=== PATIENT | female | born 1980 | race Caucasian/White ===

== ENCOUNTER 2022-09-25 13:51 | Emergency (ER) | payer OTHER ==
[2022-09-25 14:11] VITALS: BP 167/99; PULSE 87; RESP 20; TEMP 98.7
[2022-09-25] MEDS ORDERED: APIXABAN 5 MG TAB PO STA (14:32)
--- NOTE | 2022-09-25 14:40 | ED ---
Extremity Problem HPI - General Chief complaint: Extremity Problem,Nontraumatic Stated complaint: Rt leg blood clot Time Seen by Provider: 09/25/22 14:21 Source: patient, RN notes reviewed, old records reviewed Mode of arrival: ambulatory Limitations: no limitations - History of Present Illness Initial comments: Nontoxic appearing female [facility] where she was seen for bilateral lower extremity swelling for the past 2 weeks. Denies any pain. They ordered an ultrasound and found positive DVT right lower extremity today. Denies any chest pain or shortness of breath. Denies any medical history. No history of cancer and no trauma. Does take control pills regularly. Is a nonsmoker. MD Complaint: extremity swelling (blle) -: week(s) (2) Location: left, right, lower extremity History of Same: No Severity scale (1-10): 0 Associated Symptoms: denies other symptoms - Related Data Previous Rx's Medication Instructions Recorded Apixaban [Eliquis Starter Pack 0 mg PO DIRECTED 30 Days #1 each 09/25/22 (for VTE)] Allergies Allergy/AdvReac Type Severity Reaction Status Date / Time cefuroxime [From Ceftin] Allergy Rash/Hives Verified 09/25/22 14:12 Review of Systems ROS Statement: Those systems with pertinent positive or pertinent negative responses have been documented in the HPI. ROS Other: All systems not noted in ROS Statement are negative. Past Medical History Past Medical History: Deep Vein Thrombosis (DVT) History of Any Multi-Drug Resistant Organisms: None Reported Past Surgical History: No Surgical Hx Reported Past Psychological History: No Psychological Hx Reported Smoking Status: Never smoker Past Alcohol Use History: Occasional Past Drug Use History: Marijuana General Exam Limitations: no limitations General appearance: alert, in no apparent distress Head exam: Present: atraumatic, normocephalic Eye exam: Present: normal appearance. Absent: scleral icterus, conjunctival injection, periorbital swelling ENT exam: Present: mucous membranes moist Neck exam: Absent: tenderness, meningismus Respiratory exam: Present: normal lung sounds bilaterally. Absent: respiratory distress, accessory muscle use Cardiovascular Exam: Present: regular rate GI/Abdominal exam: Present: soft Left Lower Leg exam: Present: normal inspection, full ROM, swelling. Absent: tenderness Ankle exam: Present: full ROM, swelling. Absent: tenderness Foot/Toe exam: Present: normal inspection, swelling. Absent: tenderness Neurovascular tendon exam: Present: no vascular compromise. Absent: abnormal cap refill, extremity cold to touch, pallor, foot drop Right Knee exam: Present: full ROM. Absent: tenderness Lower Leg exam: Present: full ROM, swelling. Absent: tenderness Ankle exam: Present: full ROM, swelling. Absent: tenderness Foot/Toe exam: Present: full ROM, swelling. Absent: tenderness Neurovascular tendon exam: Present: no vascular compromise. Absent: abnormal cap refill, extremity cold to touch, pallor, foot drop Neurological exam: Present: alert, oriented X3 Psychiatric exam: Present: normal affect, normal mood Skin exam: Present: warm, dry, normal color. Absent: cyanosis, diaphoretic, erythema, petechiae, pallor Course Vital Signs 09/25/22 09/25/22 14:04 14:05 Temperature 98.7 F 98.7 F Pulse Rate 87 87 Respiratory 20 20 Rate Blood Pressure 167/99 167/99 O2 Sat by Pulse 98 98 Oximetry Medical Decision Making - Medical Decision Making Was pt. sent in by a medical professional or institution (Dr. PA, SALES REPRESENTATIVE [employer], urgent care, hospital, or correction...) When possible be specific @ -[facility] Did you speak to anyone other than the patient for history (EMS, parent, family, police, friend...)? What history was obtained from this source @ -[No] Did you review nursing and triage notes (agree or disagree)? Why? @ -[I reviewed and agree with nursing and triage notes] Were old charts reviewed (outside hosp., previous admission, EMS record, old EKG, old radiological studies, urgent care reports/EKG's, correction records)? Report findings @ -Ultrasound performed today showing acute DVT right lower extremity Differential Diagnosis (chest pain, altered mental status, abdominal pain women, abdominal pain men, vaginal bleeding, weakness, fever, dyspnea, syncope, headache, dizziness, GI bleed, back pain, seizure, CVA, palpatations, mental health, musculoskeletal)? @ -DVT, cellulitis, lymphedema EKG interpreted by me (3pts min.). @ -n/a X-rays interpreted by me (1pt min.). @ -[None done] CT interpreted by me (1pt min.). @ -[None done] U/S interpreted by me (1pt. min.). @ -no What testing was considered but not performed or refused? (CT, X-rays, U/S, labs)? Why? @ -[None] What meds were considered but not given or refused? Why? @ -[None] Did you discuss the management of the patient with other professionals (professionals i.e. , PA, SALES REPRESENTATIVE [employer], lab, RT, psych nurse, social sciences chair, industrial hygiene engineer, teacher, court officer, case management coordinator)? Give summary @ -[No] Was smoking cessation discussed for >3mins.? @ -[No] Was critical care preformed (if so, how long)? @ -[No] Were there social determinants of health that impacted care today? How? (Homelessness, low income, unemployed, alcoholism, drug addiction, transportation, low edu. Level, literacy, decrease access to med. care, detention, rehab)? @ -[No] Was there de-escalation of care discussed even if they declined (Discuss DNR or withdrawal of care, Hospice)? DNR status @ -[No] What co-morbidities impacted this encounter? (DM, HTN, Smoking, COPD, CAD, Cancer, CVA, ARF, Chemo, Hep., AIDS, mental health diagnosis, sleep apnea, morbi d obesity)? @ -[None] Was patient admitted / discharged? Hospital course, mention meds given and route, prescriptions, significant lab abnormalities, going to OR and other pertinent info. @ -Discharged. [facility] after ultrasound of LE found positive DVT right leg. Ultrasound report that was performed today reviewed by me shows age- indeterminate DVT below the knee in the right lower extremity. No acute DVT in the left lower extremity. Patient is a nonsmoker. Does take control daily. Denies any trauma or history of cancer. She denies any chest pain, shortness of breath or cough. Lungs sounds are clear to auscultation. Vital signs are stable. Bilateral lower extremities are warm to touch, pedal pulses are present. Patient denies any other medical history. Case discussed with Dr. Gomez no labs required at this time. Patient does have a prescription to have labs drawn today which was given to outpatient lab. She was directed to go back to outpatient lab to have them drawn. Patient was given a dose of Eliquis in the ER and a prescription. She was directed to stop taking control pills and follow-up with her doctor on Wednesday. Return with any new or concerning symptoms. Patient family member agreeable to this plan of care. Case discussed with Dr. Gomez Undiagnosed new problem with uncertain prognosis? @ -Acute DVT right lower extremity Drug Therapy requiring intensive monitoring for toxicity (Heparin, Nitro, In sulin, Cardizem)? @ -[No] Were any procedures done? @ -[No] Diagnosis/symptom? @ -Acute DVT right lower extremity Acute, or Chronic, or Acute on Chronic? @ -Acute Uncomplicated (without systemic symptoms) or Complicated (systemic symptoms)? @ -Uncomplicated Side effects of treatment? @ -[No] Exacerbation, Progression, or Severe Exacerbation? @ -[No] Poses a threat to life or bodily function? How? (Chest pain, [place], CO, pneumonia, PE, COPD, DKA, ARF, appy, cholecystitis, CVA, Diverticulitis, Homicidal, Suicidal, threat to staff... and all critical care pts) @ -[No] Disposition Clinical Impression: Deep vein thrombosis (DVT) of lower extremity Disposition: HOME SELF-CARE Condition: Good Instructions (If sedation given, give patient instructions): Deep Vein Thrombosis (ED) Additional Instructions: Take Eliquis as prescribed. Stop taking your control pills. Avoid any contact sports, sharp objects or activity that could cause falls. Return to the emergency room with a concerning symptoms including difficulty breathing or chest pain. Prescriptions: Apixaban [Eliquis Starter Pack (for VTE)] 0 mg PO DIRECTED 30 Days #1 each Is patient prescribed a controlled substance at d/c from ED?: No Referrals: Marlen Romero DO [Primary Care Provider] - 1-2 days Time of Disposition: 14:39
[2022-09-25] MEDS ORDERED: Apixaban Starter Pk for VTE 5 MG TAB PO SCH (21:00)
== END 2022-09-25 14:51 | disposition home or self-care (01) ==
LOC: EC 13:51
DX: I82.403 Acute embolism and thrombosis of unspecified deep veins of lower extremity, bilateral (principal); F12.90 Cannabis use, unspecified, uncomplicated; Z88.1 Allergy status to other antibiotic agents
CPT/HCPCS: 99283

== ENCOUNTER → 2022-09-25 | Outpatient (CLI) | payer OTHER ==
--- NOTE | 2022-09-25 13:50 | US ---
EXAMINATION TYPE: US venous doppler duplex LE DATE OF EXAM: 09/25/2022 1:40 PM COMPARISON: NONE CLINICAL INDICATION: Female, 41 years old with history of M79.89 OTHER SPECIFIED SOFT TISSUE DISORDER S; Bilateral leg swelling x 2 weeks, no h/o dvt SIDE PERFORMED: Bilateral TECHNIQUE: The lower extremity deep venous system is examined utilizing real time linear array sonog kenneth with graded compression, doppler sonography and color-flow sonography. VESSELS IMAGED: Common Femoral Vein Deep Femoral Vein Greater Saphenous Vein * Femoral Vein Popliteal Vein Small Saphenous Vein * Proximal Calf Veins (* superficial vessels) Right Leg: Internal echoes that are not compressible on right proximal calf vein, DVT Left Leg: Negative for DVT called office and spoke with Edwina with tech findings Grayscale, color doppler, spectral doppler imaging performed of the deep veins of the bilateral lower extremities. There is normal flow, compressibility, vascular waveforms. IMPRESSION: Age-indeterminate DVT below the knee in the right lower extremity. No acute DVT in the l eft lower extremity.
[2022-09-25 20:20] LABS: Basophils # (A) 0.04 X 10*3/uL (0.00-0.10); Basophils % (A) 0.5 %; Eosinophils # (A) 0.02 X 10*3/uL (0.04-0.35); Eosinophils % (A) 0.2 %; HCT 35.8 % (37.2-46.3); HGB 11.7 g/dL (12.0-15.0); Immature Grans, Automated 0.3 %; Lymphocytes # (A) 1.57 X 10*3/uL (0.90-5.00); Lymphocytes % (A) 17.8 %; MCH 29.3 pg (27.0-32.0); MCHC 32.7 g/dL (32.0-37.0); MCV 89.5 fL (80.0-97.0); Mean Platelet Volume 11.2 fL (9.5-12.2); Monocytes # (A) 0.51 X 10*3/uL (0.20-1.00); Monocytes % (A) 5.8 %; NRBC Per 100 WBC 0 /100 WBCS (0.0-0.0); Neutrophils # (A) 6.67 X 10*3/uL (1.80-7.70); Neutrophils % (A) 75.4 %; Platelet Count 251 X 10*3/uL (140-440); RDW 14.7 % (11.5-14.5); WBC 8.84 X 10*3/uL (4.50-10.00)
[2022-09-25 20:37] LABS: ALT 14 U/L (8-44); AST 15 U/L (13-35); African American GFR (CKD) 125.6 (60.0-200.0); Albumin 3.1 g/dL (3.8-4.9); Albumin/Globulin Ratio 1.29 (1.60-3.17); Alkaline Phosphatase 62 U/L (41-126); BUN/Creat Ratio 12.29 Ratio (12.00-20.00); Blood Urea Nitrogen 8.6 mg/dL (9.0-27.0); Calcium 8.9 mg/dL (8.7-10.3); Carbon Dioxide 27.5 mmol/L (20.0-27.5); Chloride 106 mmol/L (96-109); Globulin 2.4 g/dL (1.6-3.3); Glucose 82 mg/dL (70-110); Non-African American GFR(CKD) 108.4 (60.0-200.0); Potassium 4.3 mmol/L (3.5-5.5); Sodium 140 mmol/L (135-145); Total Bilirubin <0.15 mg/dL (0.30-1.20); Total Protein 5.5 g/dL (6.2-8.2)
== END | disposition home or self-care (01) ==
LOC: RADUSWWP 13:06
PROVIDERS: ATTEND Family Medicine
DX: M79.89 Other specified soft tissue disorders (principal)
CPT/HCPCS: 80053; 83880; 85025; 93970

== ENCOUNTER → 2022-12-18 | Outpatient (CLI) | payer OTHER ==
--- NOTE | 2022-12-18 14:23 | US ---
EXAMINATION TYPE: US venous doppler duplex LE RT DATE OF EXAM: 12/18/2022 1:50 PM COMPARISON: US CLINICAL INDICATION: Female, 42 years old with history of DVT; F/U prior DVT right leg, pt currently on blood thinners SIDE PERFORMED: Right TECHNIQUE: The lower extremity deep venous system is examined utilizing real time linear array sonog kenneth with graded compression, doppler sonography and color-flow sonography. VESSELS IMAGED: Common Femoral Vein Deep Femoral Vein Greater Saphenous Vein * Femoral Vein Popliteal Vein Small Saphenous Vein * Proximal Calf Veins (* superficial vessels) Right Leg: Negative for DVT, previous DVT within proximal calf vein appears resolved IMPRESSION: Grayscale, color doppler, spectral doppler imaging performed of the deep veins of the lo wer extremities. There is normal flow, compressibility, vascular waveforms.
== END | disposition home or self-care (01) ==
LOC: RADUSWWP 13:26
PROVIDERS: ATTEND Internal Medicine Medical Oncology
DX: I82.401 Acute embolism and thrombosis of unspecified deep veins of right lower extremity (principal); Z79.01 Long term (current) use of anticoagulants

== ENCOUNTER → 2022-12-18 | Outpatient (CLI) | payer OTHER ==
[2022-12-18 19:55] LABS: ALT 12 U/L (8-44); AST 23 U/L (13-35); Albumin 3.3 d/dL (3.8-4.9); Albumin/Globulin Ratio 1.38 Ratio (1.60-3.17); Alkaline Phosphatase 63 U/L (41-126); Blood Urea Nitrogen 9.6 mg/dL (9.0-27.0); Calcium 8.8 mg/dL (8.7-10.3); Carbon Dioxide 26.4 mmol/L (21.6-31.8); Chloride 105 mmol/L (96-109); Globulin 2.4 d/dL (1.6-3.3); Glucose 87 mg/dL (70-110); Potassium 3.9 mmol/L (3.5-5.5); Sodium 140 mmol/L (135-145); Total Bilirubin 0.2 mg/dL (0.3-1.2); Total Protein 5.7 d/dL (6.2-8.2)
[2022-12-19 02:05] LABS: Basophils # (A) 0.05 X 10*3/uL (0.00-0.10); Eosinophils # (A) 0.15 X 10*3/uL (0.04-0.35); Eosinophils % (A) 3.1 %; HGB 12.2 d/dL (12.0-15.0); Immature Grans, Automated 0 %; Lymphocytes # (A) 1.66 X 10*3/uL (0.90-5.00); Lymphocytes % (A) 34.8 %; MCH 30.2 pg (27.0-32.0); MCV 91.6 FL (80.0-97.0); Mean Platelet Volume 10.7 FL (9.5-12.2); Monocytes % (A) 8.4 %; NRBC Per 100 WBC 0 X 10*3/uL (0.00-0.01); Neutrophils # (A) 2.51 X 10*3/uL (1.80-7.70); Neutrophils % (A) 52.7 %; Platelet Count 287 X 10*3/uL (140-440); RBC 4.04 X 10*6/uL (4.10-5.20); RDW 14.6 % (11.5-14.5); WBC 4.77 X 10*3/uL (4.50-10.00)
== END | disposition home or self-care (01) ==
LOC: LABWHC1 13:55
PROVIDERS: ATTEND Internal Medicine Medical Oncology
DX: I82.401 Acute embolism and thrombosis of unspecified deep veins of right lower extremity (principal)
CPT/HCPCS: 36415; 80053; 85025; 85379

== ENCOUNTER 2023-02-17 11:43 | Inpatient (IN) | payer OTHER ==
[2023-02-17 12:18] LABS: Basophils % (A) 0 %; Eosinophils % (A) 0 %; HCT 46.1 % (34.0-46.0); HGB 15.2 gm/dL (11.4-16.0); Lymphocytes # (A) 1.9 k/uL (1.0-4.8); Lymphocytes % (A) 15 %; MCH 29.9 pg (25.0-35.0); MCHC 32.9 g/dL (31.0-37.0); MCV 90.9 fL (80.0-100.0); Mean Platelet Volume 8.1; Monocytes # (A) 0.7 k/uL (0-1.0); Monocytes % (A) 6 %; Neutrophils # (A) 9.9 k/uL (1.3-7.7); Neutrophils % (A) 77 %; Platelet Count 271 k/uL (150-450); RBC 5.07 m/uL (3.80-5.40); WBC 12.8 k/uL (3.8-10.6)
--- NOTE | 2023-02-17 12:19 | XR ---
EXAMINATION TYPE: XR chest 2V DATE OF EXAM: 02/17/2023 COMPARISON: NONE HISTORY: Chest pain TECHNIQUE: Frontal and lateral views of the chest are obtained. FINDINGS: There is no focal air space opacity. No evidence for pneumothorax. No pleural effusion. The cardiac silhouette size is within normal limits. The osseous structures are grossly intact. IMPRESSION: 1. No acute cardiopulmonary process.
[2023-02-17 12:23] LABS: INR 0.9 (<1.2); Partial Thromboplastin Time 24.4 sec (22.0-30.0); Prothrombin Time 10.2 sec (10.0-12.5)
[2023-02-17 12:24] LABS: ALT 15 U/L (4-34); AST 37 U/L (14-36); African American GFR (CKD) >90 (>60 ml/min/1.73 sqM); Albumin 3.5 g/dL (3.5-5.0); Alkaline Phosphatase 104 U/L (38-126); Anion Gap 12 mmol/L; Blood Urea Nitrogen 15 mg/dL (7-17); Calcium 9.4 mg/dL (8.4-10.2); Carbon Dioxide 21 mmol/L (22-30); Chloride 104 mmol/L (98-107); Glucose 120 mg/dL (74-99); Non-African American GFR(CKD) >90 (>60 ml/min/1.73 sqM); Potassium 3.5 mmol/L (3.5-5.1); Sodium 137 mmol/L (137-145); Total Bilirubin 0.7 mg/dL (0.2-1.3)
[2023-02-17] MEDS ORDERED: ASPIRIN 81 MG PO STA (12:42)
[2023-02-17] MEDS ORDERED: SODIUM CHLORIDE 0.9% 1,000 ML IV STA ×2 (12:42→13:35)
--- NOTE | 2023-02-17 13:05 | ED ---
General Adult HPI - General Chief complaint: Chest Pain Stated complaint: sob chest pain Time Seen by Provider: 02/17/23 12:17 Source: patient, RN notes reviewed, old records reviewed Mode of arrival: wheelchair Limitations: no limitations - History of Present Illness Initial comments: Patient is a 42-year-old female presents emergency Department complaining of chest discomfort as well as dyspnea and tachycardia over the last day. Patient has a history of DVT no longer on blood thinners. No family history of clots. Describes the chest pain as a discomfort feeling all over her chest. Worse with exertion. Denies any nausea, vomiting, diarrhea. Denies any urinary complaints. His no other acute complaints at this time. States that her heart rate is been on since yesterday. Recently dislocated her left knee has been in a brace. No recent surgery but has not been as ambulatory since that time. Denies any lower extremity pain or swelling. He has no other acute complaints at this time. Presents for further evaluation. - Related Data Home Medications Medication Instructions Recorded Confirmed Multivitamins, Thera [Multivitamin 1 tab PO DAILY 02/17/23 02/17/23 (formulary)] hydroCHLOROthiazide 25 mg PO DAILY 02/17/23 02/17/23 Allergies Allergy/AdvReac Type Severity Reaction Status Date / Time cefuroxime [From Ceftin] Allergy Rash/Hives Verified 02/17/23 13:57 Review of Systems ROS Statement: Those systems with pertinent positive or pertinent negative responses have been documented in the HPI. Review of Systems: CONST: Denies fever EYES: Denies blurry vision ENT: Denies nasal congestion C/V: Endorses chest discomfort RESP: Endorses shortness of breath GI: Denies abdominal pain : Denies dysuria SKIN: Denies rash. MSK: Denies joint pain. NEURO: Denies headache ROS Other: All systems not noted in ROS Statement are negative. Past Medical History Past Medical History: Deep Vein Thrombosis (DVT) History of Any Multi-Drug Resistant Organisms: None Reported Past Surgical History: No Surgical Hx Reported Past Psychological History: No Psychological Hx Reported Smoking Status: Never smoker Past Alcohol Use History: Occasional Past Drug Use History: Marijuana General Exam - General Exam Comments Initial Comments: General: Appears in mild distress secondary to tachycardia. HEAD: Normal with no signs of head trauma. EYES: PERRLA, EOMI, conjunctiva normal, no discharge. ENT: Hearing grossly intact, normal oropharynx. RESPIRATORY: Clear breath sounds bilaterally. No wheezes, rales, or rhonchi. No hypoxia. C/V: Tachycardic with regular rhythm. S1 and S2 auscultated, no symmetrical pitting edema, peripheral pulses 2+ and intact throughout ABD: Abd is soft, nontender, nondistended EXT: Normal range of motion, no obvious deformity. No calf pain on palpation. SKIN: No rashes or lesions observed on exposed skin. NEURO: Alert and oriented 4. Limitations: no limitations Course Vital Signs 02/17/23 02/17/23 11:47 15:15 Temperature 97.5 F L 97.9 F Pulse Rate 136 H 80 Respiratory 18 18 Rate Blood Pressure 134/100 128/95 O2 Sat by Pulse 98 96 Oximetry Medical Decision Making - Medical Decision Making Was pt. sent in by a medical professional or institution (LCUERO Carver, [employer]ACING SUPERVISOR, urgent care, hospital, or halfway...) When possible be specific @ -No Did you speak to anyone other than the patient for history (EMS, parent, family, police, friend...)? What history was obtained from this source @ -No Did you review nursing and triage notes (agree or disagree)? Why? @ -I reviewed and agree with nursing and triage notes Were old charts reviewed (outside hosp., previous admission, EMS record, old EKG, old radiological studies, urgent care reports/EKG's, halfway records)? Report findings @ -No old charts were reviewed Differential Diagnosis (chest pain, altered mental status, abdominal pain women, abdominal pain men, vaginal bleeding, weakness, fever, dyspnea, syncope, headache, dizziness, GI bleed, back pain, seizure, CVA, palpatations, mental health, musculoskeletal)? @ -Differential Dyspnea: Coronary syndrome, arrhythmia, tamponade, asthma, COPD, pulmonary embolism, pneumonia, pneumothorax, pulmonary effusion, anaphylaxis, diabetic ketoacidosis, flailed chest, pulmonary contusion, diaphragmatic rupture, anemia, ne uromuscular, this is not meant to be an all-inclusive list. EKG interpreted by me (3pts min.). @ -As above X-rays interpreted by me (1pt min.). @ -Chest x-ray reveals no obvious acute cardio pulmonary process. CT interpreted by me (1pt min.). @ -CT PE reveals bilateral pulmonary emboli, extending from bilateral main pulmonary arteries through the segmental and subsegmental branches with findings of right heart strain. Patient also has possible right lower lobe pulmonary infarct. Radiology also detects a small cystic lesion in the liver. U/S interpreted by me (1pt. min.). @ -None done What testing was considered but not performed or refused? (CT, X-rays, U/S, labs)? Why? @ -None What meds were considered but not given or refused? Why? @ -None Did you discuss the management of the patient with other professionals (professionals i.e. DrKala, PA, [employer] SUPERVISOR, lab, RT, psych nurse, social work program coordinator, lime sludge mixer, teacher, landcare officer, insurance case manager)? Give summary @ -I contacted pulmonology on-call, Dr. Alexander who is in agreement with the plan accepted the patient to the ICU if there is plan for a dose. I spoke with cardiology Dr. Walters who is covering for a dose at this time who plans to take the patient for a test. Patient will be admitted to the ICU. I spoke with Dr. Clemente who accepted the patient under his service. Was smoking cessation discussed for >3mins.? @ -No Was critical care preformed (if so, how long)? @ -yes, 42 minutes Were there social determinants of health that impacted care today? How? (Homelessness, low income, unemployed, alcoholism, drug addiction, transportation, low edu. Level, literacy, decrease access to med. care, long term, rehab)? @ -No Was there de-escalation of care discussed even if they declined (Discuss DNR or withdrawal of care, Hospice)? DNR status @ -No What co-morbidities impacted this encounter? (DM, HTN, Smoking, COPD, CAD, Cancer, CVA, ARF, Chemo, Hep., AIDS, mental health diagnosis, sleep apnea, morbid obesity)? @ -None Was patient admitted / discharged? Hospital course, mention meds given and route, prescriptions, significant lab abnormalities, going to OR and other p ertinent info. @ -Based the patient's presentation and physical exam, I'm concerned for possible cardiopulmonary etiology for the patient's current symptoms. High likelihood is PE. Patient began her workup in the waiting room and I was notified of lab results and evaluated her when she was placed in trauma bay 4 at my instruction for immediate evaluation. Vital signs are remarkable for tachycardia but otherwise hemodynamically stable and normoxic on room air. Patient will be given a 1 L fluid bolus. Patient's labs up until this point are remarkable for mild leukocytosis of 12.8, elevated d-dimer for 4-5, as well as an elevated troponin of 2.0. Patient likely has a PE based on clinical presentation. She was given an aspirin in additional 1 L fluid bolus. We will obtain a CT PE to evaluate for pulmonary embolism. Patient was in agreement this plan. We'll add on a BNP as well. EKG shows nonspecific ST and T-wave abnormality with no obvious evidence of STEMI. Troponin and BNP both elevated. CT PE shows a bilateral substantial moderate to severe clot burden and pulmonary emboli with a possible early right lower lobe pulmonary infarct. There is right heart strain on CT. Stat echo was obtained the patient was placed on high-dose heparin therapy. After the patient. She expressed understanding was in agreement with the plan. Vital signs remained within acceptable limits other than the sinus tachycardia. No hypoxia. I contacted pulmonology on-call, Dr. Alexander who is in agreement with the plan accepted the patient to the ICU if there is plan for a dose. I spoke with cardiology Dr. Walters who is covering for a dose at this time who plans to take the patient for a test. Patient will be admitted to the ICU. I spoke with Dr. Clemente who accepted the patient under his service. Undiagnosed new problem with uncertain prognosis? @ -No Drug Therapy requiring intensive monitoring for toxicity (Heparin, Nitro, Insulin, Cardizem)? @ -heparin Were any procedures done? @ -No Diagnosis/symptom? @ -Bilateral pulmonary emboli with right heart strain Acute, or Chronic, or Acute on Chronic? @ -Acute Uncomplicated (without systemic symptoms) or Complicated (systemic symptoms)? @ -Complicated Side effects of treatment? @ -none Exacerbation, Progression, or Severe Exacerbation] @ -no Poses a threat to life or bodily function? @ -yes Diagnosis/symptom? @ -Sinus tachycardia from pulmonary emboli Acute, or Chronic, or Acute on Chronic? @ -Acute Uncomplicated (without systemic symptoms) or Complicated (systemic symptoms)? @ -Complicated Side effects of treatment? @ -none Exacerbation, Progression, or Severe Exacerbation] @ -no Poses a threat to life or bodily function? @ -no - Lab Data Result diagrams: 02/17/23 11:59 02/17/23 11:59 Lab Results 02/17/23 02/17/23 02/17/23 Range/Units 11:59 11:59 11:59 WBC 12.8 H (3.8-10.6) k/uL RBC 5.07 (3.80-5.40) m/uL Hgb 15.2 (11.4-16.0) gm/dL Hct 46.1 H (34.0-46.0) % MCV 90.9 (80.0-100.0) fL MCH 29.9 (25.0-35.0) pg MCHC 32.9 (31.0-37.0) g/dL RDW 13.0 (11.5-15.5) % Plt Count 271 (150-450) k/uL MPV 8.1 Neutrophils % 77 % Lymphocytes % 15 % Monocytes % 6 % Eosinophils % 0 % Basophils % 0 % Neutrophils # 9.9 H (1.3-7.7) k/uL Lymphocytes # 1.9 (1.0-4.8) k/uL Monocytes # 0.7 (0-1.0) k/uL Eosinophils # 0.0 (0-0.7) k/uL Basophils # 0.0 (0-0.2) k/uL PT 10.2 (10.0-12.5) sec INR 0.9 (<1.2) APTT 24.4 (22.0-30.0) sec D-Dimer (<0.60) mg/L FEU Sodium 137 (137-145) mmol/L Potassium 3.5 (3.5-5.1) mmol/L Chloride 104 (98-107) mmol/L Carbon Dioxide 21 L (22-30) mmol/L Anion Gap 12 mmol/L BUN 15 (7-17) mg/dL Creatinine 0.67 (0.52-1.04) mg/dL Est GFR (CKD-EPI)AfAm >90 (>60 ml/min/1.73 sqM) Est GFR (CKD-EPI)NonAf >90 (>60 ml/min/1.73 sqM) Glucose 120 H (74-99) mg/dL Calcium 9.4 (8.4-10.2) mg/dL Total Bilirubin 0.7 (0.2-1.3) mg/dL AST 37 H (14-36) U/L ALT 15 (4-34) U/L Alkaline Phosphatase 104 (38-126) U/L Troponin I (0.000-0.034) ng/mL NT-Pro-B Natriuret Pep pg/mL Total Protein 7.0 (6.3-8.2) g/dL Albumin 3.5 (3.5-5.0) g/dL 02/17/23 02/17/23 02/17/23 Range/Units 11:59 11:59 11:59 WBC (3.8-10.6) k/uL RBC (3.80-5.40) m/uL Hgb (11.4-16.0) gm/dL Hct (34.0-46.0) % MCV (80.0-100.0) fL MCH (25.0-35.0) pg MCHC (31.0-37.0) g/dL RDW (11.5-15.5) % Plt Count (150-450) k/uL MPV Neutrophils % % Lymphocytes % % Monocytes % % Eosinophils % % Basophils % % Neutrophils # (1.3-7.7) k/uL Lymphocytes # (1.0-4.8) k/uL Monocytes # (0-1.0) k/uL Eosinophils # (0-0.7) k/uL Basophils # (0-0.2) k/uL PT (10.0-12.5) sec INR (<1.2) APTT (22.0-30.0) sec D-Dimer 4.25 H (<0.60) mg/L FEU Sodium (137-145) mmol/L Potassium (3.5-5.1) mmol/L Chloride (98-107) mmol/L Carbon Dioxide (22-30) mmol/L Anion Gap mmol/L BUN (7-17) mg/dL Creatinine (0.52-1.04) mg/dL Est GFR (CKD-EPI)AfAm (>60 ml/min/1.73 sqM) Est GFR (CKD-EPI)NonAf (>60 ml/min/1.73 sqM) Glucose (74-99) mg/dL Calcium (8.4-10.2) mg/dL Total Bilirubin (0.2-1.3) mg/dL AST (14-36) U/L ALT (4-34) U/L Alkaline Phosphatase (38-126) U/L Troponin I 2.000 H* (0.000-0.034) ng/mL NT-Pro-B Natriuret Pep 6140 pg/mL Total Protein (6.3-8.2) g/dL Albumin (3.5-5.0) g/dL - EKG Data -: EKG Interpreted by Me EKG Comments: 12-lead Electrocardiogram Interpretation Note EKG was reviewed and interpreted by myself. 12-lead ECG performed at 1151 is interpreted by me as revealing sinus tachycardia at a rate of 128 beats per rafl te. [place] is normal. CO interval is 124 ms, QRS duration is 77 ms, QTc is [address] segment in T wave abnormalities. R wave progression across the precordium was satisfactory. 12-lead Electrocardiogram Interpretation Note EKG was reviewed and interpreted by myself. 12-lead ECG performed at 1253 is interpreted by me as revealing sinus tachycardia at a rate of 123 beats per minute. [place] is normal. CO interval is 156 ms, QRS duration is 80 ms, QTc is [address] segment in T wave abnormalities. R wave progression across the precordium was satisfactory. Critical Care Time Critical Care Time: Yes Total Critical Care Time: 42 Disposition Clinical Impression: Bilateral pulmonary embolism, Sinus tachycardia Disposition: ADMITTED IP TO THIS [facility] Condition: Serious Time of Disposition: 14:00
[2023-02-17] MEDS ORDERED: HEPARIN SODIUM 1,000 UN/ML (10ML VL) IV ONE (13:25)
[2023-02-17] MEDS ORDERED: HEPARIN SODIUM 1,000 UN/ML (10ML VL) IV PRN (13:25)
[2023-02-17] MEDS ORDERED: HEPARIN SOD,PORK IN 0.45% NACL 25,000 UNIT in 0.45% NACL 1 250ML.BAG IV SCH (13:30)
--- NOTE | 2023-02-17 13:46 | CT ---
EXAMINATION TYPE: CT chest angio for PE DATE OF EXAM: 02/17/2023 COMPARISON: Radiograph 02/17/2023 HISTORY: 42-year-old female SOB, chest pain, history of DVT TECHNIQUE: Contiguous axial scanning of the chest performed with IV Contrast, patient injected with 1 00 mL of Isovue 370. Coronal/sagittal MIP reconstructions performed. CT DLP: 286.8 mGycm Automated exposure control for dose reduction was used. FINDINGS: Heart normal size without pericardial effusion. Flattening of the interventricular septum with right ventricular dilatation. Aorta normal caliber with conventional arch vessel branching anatomy. No thoracic lymphadenopathy by CT size criteria. Satisfactory opacification of the pulmonary arterial system. There is extensive clot throughout the b ilateral pulmonary arteries extending from the distal main arteries throughout all of the lobar branc hes. Extensively throughout segmental and subsegmental branches of the lower lobes and to lesser exte nt right upper lobe. There is focal subpleural airspace disease periphery of the right base. No pleural effusion. Visualized upper abdomen shows a probable large cyst measuring 5.5 cm in the mid liver. This can be c onfirmed by liver ultrasound. Bones: No osseous destructive process. IMPRESSION: 1. EXAM POSITIVE FOR BILATERAL PULMONARY EMBOLI WITH MODERATE TO SEVERE BURDEN. CLOT INVOLVES THE DIS AHMET MAIN PULMONARY ARTERIES AND ALL LOBAR BRANCHES. EXTENSIVELY THROUGHOUT SEGMENTAL AND SUBSEGMENTAL BRANCHES OF THE LOWER LOBES AND TO A LESSER EXTENT THE RIGHT UPPER LOBE. SUSPECT EARLY DEVELOPING PU LMONARY INFARCT AT THE PERIPHERY OF THE RIGHT BASE. 2. CT FINDINGS SUGGEST RIGHT HEART STRAIN. 3. INDETERMINATE 5.5 CM LESION IN THE MID LIVER. RECOMMEND CONFIRMATION OF A BENIGN CYST BY ALEJANDRO D. Critical findings called to Dr. Blanca in the ER at 1:40 PM.
[2023-02-17] MEDS ORDERED: NALOXONE 0.4 MG/ML 1 ML VIAL IV PRN (14:33)
[2023-02-17] MEDS ORDERED: IV FLUID CONTINUATION 1,000 ML IV ONE (15:20)
[2023-02-17] MEDS ORDERED: ALTEPLASE 6 MG in SODIUM CHLORIDE 0.9% 144 ML IV ONE ×4 (15:21)
--- NOTE | 2023-02-17 15:24 | P.CRDCN ---
History of Present Illness History of present illness: HISTORY OF PRESENT ILLNESS: This is a 42 year old female with a past medical history significant for DVT. Patient does not follow with a form coverer. We have been asked to see the patient in consultation for chest pain. Patient examined at the bedside in the emergency room. Patient states she started having shortness of breath and tachycardia yesterday suddenly. She was diagnosed with a DVT around . She was placed on Eliquis which was stopped in December. She states over the past 3 weeks she has not been very active as she dislocated her knee. Patient was found to have bilateral PE. She was started on IV Heparin. She reports mild chronic lower extremity edema and was prescribed HCTZ around the same time that she was diagnosed with a DVT. Telemetry reveals sinus tachycardia with a heart rate around 120. * Chest xray negative for acute process * EKG reveals sinus tachycardia * Current home cardiac medications include HCTZ 25mg daily REVIEW OF SYSTEMS: At the time of my exam: CONSTITUTIONAL: Denies fever or chills. HEENT: Denies blurred vision, vision changes, or eye pain. Denies hemoptysis CARDIOVASCULAR: Denies chest pain. Denies orthopnea. Denies PND. Denies palpitations RESPIRATORY: Denies shortness of breath. GASTROINTESTINAL: Denies abdominal pain. Denies nausea or vomiting. HEMATOLOGIC: Denies bleeding disorders. GENITOURINARY: Denies any blood in urine. SKIN: Denies pruitis. Denies rash. PHYSICAL EXAM: VITAL SIGNS: Reviewed. GENERAL: Well-developed in no acute distress. HEENT: Head is normocephalic. Pupils are equal, round. Sclerae anicteric. Mucous membranes of the mouth are moist. Neck supple. No JVD or thyromegaly LUNGS: Respirations even and unlabored. Lungs essentially clear to auscultation bilaterally. HEART: Tachycardic. Regular rate and rhythm. S1 and S2 heard. ABDOMEN: Soft. Nondistended. Nontender. EXTREMITIES: Normal range of motion. No clubbing or cyanosis. Peripheral pulses intact. No lower extremity edema NEUROLOGIC: Awake and alert. Oriented x 3. ASSESSMENT: Bilateral pulmonary emboli with moderate to severe clot burden Right heart strain Chest pain, secondary to above Sinus tachycardia Elevated troponin History of DVT PLAN: Preliminary echo reveals evidence of right heart strain Continue IV heparin Patient to under EKOS procedure with Dr. Walters today Further recommendations pending patient course Nurse practitioner note has been reviewed by physician. Signing provider agrees with the documented findings, assessment, and plan of care. Past Medical History Past Medical History: Deep Vein Thrombosis (DVT) History of Any Multi-Drug Resistant Organisms: None Reported Past Surgical History: No Surgical Hx Reported Past Psychological History: No Psychological Hx Reported Smoking Status: Never smoker Past Alcohol Use History: Occasional Past Drug Use History: Marijuana Medications and Allergies Home Medications Medication Instructions Recorded Confirmed Type Multivitamins, Thera [Multivitamin 1 tab PO DAILY 02/17/23 02/17/23 History (formulary)] hydroCHLOROthiazide 25 mg PO DAILY 02/17/23 02/17/23 History Allergies Allergy/AdvReac Type Severity Reaction Status Date / Time cefuroxime [From Ceftin] Allergy Rash/Hives Verified 02/17/23 13:57 Physical Exam Vitals: Vital Signs Temp Pulse Resp BP Pulse Ox 02/17/23 11:47 97.5 F L 136 H 18 134/100 98 Intake and Output 02/16/23 02/17/23 02/17/23 22:59 06:59 14:59 Other: Weight 76.204 kg Results 02/17/23 11:59 02/17/23 11:59 Cardiac Enzymes 02/17/23 02/17/23 Range/Units 11:59 11:59 AST 37 H (14-36) U/L Troponin I 2.000 H* (0.000-0.034) ng/mL Coagulation 02/17/23 Range/Units 11:59 PT 10.2 (10.0-12.5) sec APTT 24.4 (22.0-30.0) sec CBC 02/17/23 Range/Units 11:59 WBC 12.8 H (3.8-10.6) k/uL RBC 5.07 (3.80-5.40) m/uL Hgb 15.2 (11.4-16.0) gm/dL Hct 46.1 H (34.0-46.0) % Plt Count 271 (150-450) k/uL Comprehensive Metabolic Panel 02/17/23 Range/Units 11:59 Sodium 137 (137-145) mmol/L Potassium 3.5 (3.5-5.1) mmol/L Chloride 104 (98-107) mmol/L Carbon Dioxide 21 L (22-30) mmol/L BUN 15 (7-17) mg/dL Creatinine 0.67 (0.52-1.04) mg/dL Glucose 120 H (74-99) mg/dL Calcium 9.4 (8.4-10.2) mg/dL AST 37 H (14-36) U/L ALT 15 (4-34) U/L Alkaline Phosphatase 104 (38-126) U/L Total Protein 7.0 (6.3-8.2) g/dL Albumin 3.5 (3.5-5.0) g/dL Current Medications Generic Name Dose Route Start Last Admin Trade Name Freq PRN Reason Stop Dose Admin Heparin Sodium (Porcine) 0 unit 02/17/23 13:25 Heparin Sodium 1,000 Un/Ml (10ml Vl) IV PER PROTOCOL PRN Low PTT Protocol Heparin Sodium/Sodium Chloride 250 mls @ 13.717 mls/hr 02/17/23 13:30 02/17/23 14:07 25,000 unit/ Sodium Chloride IV 18 units/kg/hr .[id number] AVELINO 13.717 mls/hr Administration Protocol 18 UNITS/KG/HR Sodium Chloride 1,000 mls @ 75 mls/hr 02/17/23 13:35 Saline 0.9% IV 02/18/23 02:54 .[id number] STA Intake and Output 02/16/23 02/17/23 02/17/23 22:59 06:59 14:59 Other: Weight 76.204 kg Patient Weight 02/18/23 06:59 Weight 76.204 kg 02/17/23 11:59 02/17/23 11:59
[2023-02-17] MEDS ORDERED: fentaNYL (PF) 50 MCG/ML 2 ML AMP ONE (15:26)
[2023-02-17] MEDS ORDERED: SODIUM CHLORIDE 0.9% 1,000 ML IV SCH ×4 (15:30)
[2023-02-17] MEDS ORDERED: MIDAZOLAM 2 MG/2 ML VIAL IVP ONE (15:43)
[2023-02-17] MEDS: LIDOCAINE 1% INJ 10MG/ML (20 ML MDV) SQ ONE ×2 (15:43→15:46)
[2023-02-17] MEDS ORDERED: fentaNYL (PF) 50 MCG/ML 2 ML AMP IVP ONE (15:43)
[2023-02-17] MEDS ORDERED: LIDOCAINE 1% INJ 10MG/ML (20 ML MDV) ONE ×2 (15:52→16:08)
[2023-02-17] MEDS ORDERED: LIDOCAINE 1% INJ 10MG/ML (20 ML MDV) SQ ONE (16:09)
[2023-02-17] MEDS: HEPARIN SOD,PORK IN 0.45% NACL 25,000 UNIT in 0.45% NACL 1 250ML.BAG IV SCH ×4 (16:47→20:02)
--- NOTE | 2023-02-17 16:49 | P.PCN ---
Date of Procedure: 02/17/23 Description of Procedure: EKOS Indication: Pulmonary embolism with right ventricular strain Procedure: After explaining the procedure to the patient as well is the risks and the complications and using Xylocaine anesthesia with the micropuncture catheter attempt to cannulate the right femoral vein using ultrasound guided were unsuccessful. Subsequently using Xylocaine anesthesia and ultrasound guidance with micropuncture needle to catheter were positioned in the left femoral vein subsequently exchanged to 8-Croatian sheath. Subsequent to that using a 7-Croatian [place] catheter both left and right pulmonary artery were cannulated in sequence. Using a victory 18 wire the [place]rice was exchanged to the EKOS catheter, positioned in the right and left pulmonary artery. Subsequently the infusion catheter were positioned in place and infusion was started without any complications. Catheter was sutured in place. The patient was returned to her room in stable condition. There was no immediate complications.
[2023-02-17 17:11] LABS: Glucose,Whole Blood 90 mg/dL (70-110)
[2023-02-17] MEDS: SODIUM CHLORIDE 0.9% 1,000 ML IV SCH ×2 (17:22→20:03)
--- NOTE | 2023-02-17 17:22 | P.CNPUL ---
History of Present Illness Consult date: 02/17/23 Requesting physician: Thom Clemente Reason for consult: dyspnea, hypoxemia, pulmonary embolism, abnormal CXR/CT Chief complaint: Shortness of breath. History of present illness: Pulmonary consult dated 02/17/2023. 42-year-old female seen in the emergency department, on February 17, by Dr. Flex jacobs. She presented to the emergency department complaining of chest discomfort, and shortness of breath, and rapid heartbeat. The patient has a history of a DVT in the right leg, back in August, completing 3 months of Eliquis. Currently, about 4 weeks ago, she dislocated her left knee the patient's symptoms apparently were worse with exertion. She denied a nausea, vomiting or diarrhea. She denied any urinary complaints. She ended up having a CT angiogram which showed a significant pulmonary embolism. The patient was seen by cardiology, and, they recommended EKOS. The patient is seen in the intensive care unit, room 264. She's currently on saline at 75 mL an hour, as well as IV heparin and tPA. White count 12.8, hemoglobin 15.2, hematocrit 46.1, and platelet count 271,000. D-dimer was 4.25. Sodium 137, potassium 3.5, chlorides 104, CO2 21, BUN 15, and creatinine 0.67. Her troponin was 2. Her N-terminal proBNP was 6140. Her chest x-ray was normal. Her CT angiogram showed bilateral pulmonary emboli with moderate to severe burden. The clot involves the distal main pulmonary arteries and all the lobar branches as well as segmental and some segmental branches. Affected areas include primarily lower lobe but to a lesser extent the right upper lobe. In addition, there may be a pulmonary infarct developing in the periphery of the right lung base. There is evidence of right heart strain. Review of Systems REVIEW OF SYSTEMS: CONSTITUTIONAL: [Negative.] NEUROLOGIC: [ Negative.] HEENT: [ Negative.] CARDIAC: Chest pain. PULMONARY: Shortness of breath. GI: [Negative.] : [Negative.] RHEUMATOLOGIC: [ Negative.] IMMUNOLOGIC: [ Negative.] ENDOCRINE: [Negative. ] DERMATOLOGIC: [Negative.] Past Medical History Past Medical History: Deep Vein Thrombosis (DVT) History of Any Multi-Drug Resistant Organisms: None Reported Past Surgical History: No Surgical Hx Reported Past Psychological History: No Psychological Hx Reported Smoking Status: Never smoker Past Alcohol Use History: Occasional Past Drug Use History: Marijuana Medications and Allergies Home Medications Medication Instructions Recorded Confirmed Type Multivitamins, Thera [Multivitamin 1 tab PO DAILY 02/17/23 02/17/23 History (formulary)] hydroCHLOROthiazide 25 mg PO DAILY 02/17/23 02/17/23 History Allergies Allergy/AdvReac Type Severity Reaction Status Date / Time cefuroxime [From Ceftin] Allergy Rash/Hives Verified 02/17/23 13:57 Physical Exam Osteopathic Statement: *. No significant issues noted on an osteopathic structural exam other than those noted in the History and Physical/Consult. Vitals: Vital Signs Temp Pulse Resp BP Pulse Ox 02/17/23 15:15 97.9 F 80 18 128/95 96 02/17/23 11:47 97.5 F L 136 H 18 134/100 98 Intake and Output 02/17/23 02/17/23 02/17/23 06:59 14:59 22:59 Intake Total 50 Balance 50 Intake: IV 50 Other: Weight 76.204 kg No acute distress, oriented 3. Currently on room air. Saturations 98%. HEENT examination is grossly unremarkable. Mucous membranes are moist. No oral lesions. Neck supple. Full range of motion. No adenopathy thyromegaly or neck vein distention. Cardiovascular examination reveals regular rhythm rate. S1-S2 normal. No S3 or S4. No discernible murmur noted. Heart rate 120 bpm. Lungs reveal clear breath sounds. Breath sounds are equal bilaterally. No adventitious lung sounds including wheezes rhonchi or crackles. Abdomen soft bowel sounds are heard. No masses or tenderness. Extremities are intact. No cyanosis clubbing or edema. Skin is without rash or lesion. Neurologic examination is brief but nonfocal. Results - Laboratory Findings CBC and BMP: 02/17/23 11:59 02/17/23 11:59 PT/INR, D-dimer PT 10.2 sec (10.0-12.5) 02/17/23 11:59 INR 0.9 (<1.2) 02/17/23 11:59 D-Dimer 4.25 mg/L FEU (<0.60) H 02/17/23 11:59 Abnormal lab findings: Abnormal Labs 02/17/23 02/17/23 02/17/23 11:59 11:59 11:59 WBC 12.8 H Hct 46.1 H Neutrophils # 9.9 H D-Dimer Carbon Dioxide 21 L Glucose 120 H AST 37 H Troponin I 2.000 H* 02/17/23 11:59 WBC Hct Neutrophils # D-Dimer 4.25 H Carbon Dioxide Glucose AST Troponin I - Diagnostic Findings Chest x-ray: image reviewed CT scan - chest: image reviewed Assessment and Plan Assessment: Submassive pulmonary embolism, with evidence of pulmonary infarction, right lung base, and development of a Joseph's hump. Status post EKOS, 02/17/2023. Recent dislocation of the left knee, 4 weeks ago, with patient being sedentary afterwards History of DVT, right leg, Aug, 2022, status post 3 months of Eliquis. No other significant medical history. Plan: Plan dated 02/17/2023. The patient is admitted to the intensive care unit, after undergoing EKOS for submassive pulmonary embolism. CT angiogram showed bilateral clot, with right heart strain, and developing Joseph's hump, at the right lung base. The patient has a history of previous DVT, involving the right leg, back in August 2022, and more recently, dislocated her left knee, and has been inactive subsequently. The patient's currently on room air. Her vital signs are stable. She's receiving IV heparin and tPA. We will continue to follow and make recommendations along the way. Time with Patient: Greater than 30
[2023-02-17 18:54] LABS: Basophils % (A) 0 %; Eosinophils % (A) 0 %; HGB 13.4 gm/dL (11.4-16.0); Lymphocytes # (A) 1.4 k/uL (1.0-4.8); Lymphocytes % (A) 18 %; MCH 30.8 pg (25.0-35.0); MCHC 33.5 g/dL (31.0-37.0); Mean Platelet Volume 7.9; Monocytes # (A) 0.4 k/uL (0-1.0); Monocytes % (A) 4 %; Neutrophils # (A) 6.3 k/uL (1.3-7.7); Neutrophils % (A) 77 %; Platelet Count 241 k/uL (150-450); RBC 4.35 m/uL (3.80-5.40); RDW 12.7 % (11.5-15.5); WBC 8.2 k/uL (3.8-10.6)
[2023-02-17 19:13] LABS: African American GFR (CKD) >90 (>60 ml/min/1.73 sqM); Anion Gap 5 mmol/L; Blood Urea Nitrogen 13 mg/dL (7-17); Calcium 7.9 mg/dL (8.4-10.2); Carbon Dioxide 22 mmol/L (22-30); Chloride 108 mmol/L (98-107); Glucose 98 mg/dL (74-99); Non-African American GFR(CKD) >90 (>60 ml/min/1.73 sqM); Potassium 3.2 mmol/L (3.5-5.1); Sodium 135 mmol/L (137-145)
[2023-02-17 19:47] LABS: Partial Thromboplastin Time 29.8 sec (22.0-30.0); Prothrombin Time 10.8 sec (10.0-12.5)
[2023-02-17] MEDS ORDERED: Potassium Replacement Protocol 1 EACH MISC MISCELLANE PRN (20:13)
[2023-02-17] MEDS: POTASSIUM CHLORIDE ER 20 MEQ TAB.ER PO SCH ×2 (20:18→21:04)
[2023-02-17] MEDS ORDERED: ALPRAZolam 0.25 MG TAB PO STA (22:22)
--- NOTE | 2023-02-17 22:42 | P.HPIM ---
History of Present Illness H&P Date: 02/17/23 Chief Complaint: Short of breath Pleasant 42-year-old patient who follows with Dr. Karolina Romero. Around this 2022 patient developed a clot in the right leg. Received 3 months of anticoagulation. It was then discontinued. Since then patient been having bilateral auditory swelling and was taking a diuretic for the same. About a month ago patient dislocated her left knee. Has been up in a brace since then. Decreased activity. Pain which has been working from home. Yesterday patient Some palpitation chest pressure shortness of breath. Hasn't some pain in the right chest with deep respiration. Decided to come in today. Patient was discovered to have severe bilateral pulmonary embolism. Was taken to the ICU and alteplase was given withEKOS. Subsequently patient on IV heparin. In the ICU. Currently breathing is stable. No chest pain. Patient denies any prior history of any miscarriage or . No other blood clot history. Her mother did have a blood clot attribute it to sedentary habit. Review of systems: GEN.: Tired EYES: None HEENT: None NECK: None RESPIRATORY: As above CARDIOVASCULAR: As above GASTROINTESTINAL: None GENITOURINARY: None MUSCULOSKELETAL: As above LYMPHATICS: None HEMATOLOGICAL: None PSYCHIATRY: None NEUROLOGICAL: None Past medical history to include: Right leg blood clot in 2022. Left knee displaced. Social history: Lives with her . Does insurance medical claim. Occasional marijuana. Occasional alcohol. Physical examination: VITAL SIGNS: 97.5, 136, 18, 134/100, 98% room air upon presentation GENERAL: BMI 27.1, declining but awake not in distress. EYES: Pupils equal. Conjunctiva normal. HEENT: External appearance of nose and ears normal, oral cavity grossly normal. NECK: JVD not raised; masses not palpable. HEART: First and second heart sounds are normal; no edema. LUNGS: Respiratory rate normal; clear to auscultation. ABDOMEN: Soft, nontender, liver spleen not palpable, no masses palpable. access through the right groin. PSYCH: Alert and oriented x3; mood and affect normal. MUSCULOSKELETAL:No Clubbing/cyanosis;muscles-grossly intact NEUROLOGICAL: Cranial nerves grossly intact; no facial asymmetry, power and sensation grossly intact. LYMPHATICS: No lymph nodes palpable in the axilla and neck INVESTIGATIONS, reviewed in the clinical context: February 17: White count 12.8 hemoglobin 15.2 platelets 271 sodium 137 potassium 3.5 creatinine 0.67 Troponin I 2.0 proBNP 6140 EKG tracing personally reviewed by me-sinus tachycardia. P pulmonale. Some ST- T wave changes. Chest x-ray film personally reviewed by me-unremarkable CTA chest: Bilateral pulmonary embolism with moderate to severe burden. Clot involves the distal main pulmonary arteries and all lobar branches extensively throughout the segmental and subsegmental branches of the lower lobes. Suspect early developing pulmonary infarct of the peripheral the right base. Some right heart strain. Indeterminate 5.5 cm lesion of the mid liver. Assessment and plan: -Acute bilateral pulmonary embolism precipitated by patient remaining a left leg brace last 3-4 weeks. Patient also had a DVT in the right knee around of this year. Did receive 3 months of anticoagulation. Status post alteplase followed by IV heparin.EKOS Patient will need lifelong anticoagulation -IV heparin monitoring Follow PTT -Possible right pulmonary infarct secondary to PE. IV heparin -Type II myocardial infarction from right ventricle strain. Secondary to PE. IV heparin -Sinus tachycardia from above -Left patella was displaced. Has been in the left knee brace for last 3-4 weeks. Follow with orthopedics outpatient Care was discussed with the patient. Questions answered. Past Medical History Past Medical History: Deep Vein Thrombosis (DVT), Pulmonary Embolus (PE) History of Any Multi-Drug Resistant Organisms: None Reported Past Surgical History: No Surgical Hx Reported Past Psychological History: No Psychological Hx Reported Smoking Status: Former smoker Past Alcohol Use History: Occasional Past Drug Use History: Marijuana Medications and Allergies Home Medications Medication Instructions Recorded Confirmed Type Multivitamins, Thera [Multivitamin 1 tab PO DAILY 02/17/23 02/17/23 History (formulary)] hydroCHLOROthiazide 25 mg PO DAILY 02/17/23 02/17/23 History Allergies Allergy/AdvReac Type Severity Reaction Status Date / Time cefuroxime [From Ceftin] Allergy Rash/Hives Verified 02/17/23 13:57 Physical Exam Vitals: Vital Signs Temp Pulse Resp BP Pulse Ox 02/17/23 21:00 113 H 22 111/89 97 02/17/23 20:00 98.0 F 111 H 15 121/81 96 02/17/23 19:00 118 H 13 124/93 94 L 02/17/23 18:45 114 H 17 123/87 95 02/17/23 18:30 116 H 24 123/84 95 02/17/23 18:15 114 H 17 131/88 96 02/17/23 18:00 117 H 12 118/94 96 02/17/23 17:45 120 H 12 118/90 94 L 02/17/23 17:30 115 H 21 118/90 94 L 02/17/23 17:15 98.4 F 20 120/87 95 02/17/23 15:15 97.9 F 80 18 128/95 96 02/17/23 11:47 97.5 F L 136 H 18 134/100 98 Intake and Output 02/17/23 02/17/23 02/17/23 06:59 14:59 22:59 Intake Total 464.551 Output Total 0 Balance 464.551 Intake: IV 425 Sodium Chloride 0.9% 1, 375 000 ml @ 75 mls/hr IV . [id number] STA Rx#:[id number] Intake, IV Titration 39.551 Amount Heparin Sod,Pork in 0.45% 39.551 NaCl 25,000 unit In 0.45 % NaCl 1 250ml.bag @ 18 UNITS/KG/HR 13.717 mls/hr IV .[id number] [facility] Rx#: [id number] Output: Urine 0 Other: # Voids 0 Weight 76.204 kg 76.204 kg Results CBC & Chem 7: 02/17/23 18:33 02/17/23 18:33 Labs: Abnormal Lab Results - Last 24 Hours (Table) 02/17/23 02/17/23 02/17/23 Range/Units 11:59 11:59 11:59 WBC 12.8 H (3.8-10.6) k/uL Hct 46.1 H (34.0-46.0) % Neutrophils # 9.9 H (1.3-7.7) k/uL Fibrinogen (200-500) mg/dL D-Dimer (<0.60) mg/L FEU Sodium (137-145) mmol/L Potassium (3.5-5.1) mmol/L Chloride (98-107) mmol/L Carbon Dioxide 21 L (22-30) mmol/L Creatinine (0.52-1.04) mg/dL Glucose 120 H (74-99) mg/dL Calcium (8.4-10.2) mg/dL AST 37 H (14-36) U/L Troponin I 2.000 H* (0.000-0.034) ng/mL 02/17/23 02/17/23 02/17/23 Range/Units 11:59 18:33 18:33 WBC (3.8-10.6) k/uL Hct (34.0-46.0) % Neutrophils # (1.3-7.7) k/uL Fibrinogen 578 H (200-500) mg/dL D-Dimer 4.25 H (<0.60) mg/L FEU Sodium 135 L (137-145) mmol/L Potassium 3.2 L (3.5-5.1) mmol/L Chloride 108 H (98-107) mmol/L Carbon Dioxide (22-30) mmol/L Creatinine 0.51 L (0.52-1.04) mg/dL Glucose (74-99) mg/dL Calcium 7.9 L (8.4-10.2) mg/dL AST (14-36) U/L Troponin I (0.000-0.034) ng/mL
[2023-02-18 06:09] LABS: Basophils % (A) 0 %; Eosinophils % (A) 1 %; HCT 34.4 % (34.0-46.0); HGB 11.6 gm/dL (11.4-16.0); Lymphocytes # (A) 1.4 k/uL (1.0-4.8); Lymphocytes % (A) 20 %; MCH 31.1 pg (25.0-35.0); MCHC 33.8 g/dL (31.0-37.0); MCV 92.2 fL (80.0-100.0); Mean Platelet Volume 8.6; Monocytes # (A) 0.5 k/uL (0-1.0); Monocytes % (A) 6 %; Neutrophils # (A) 5.1 k/uL (1.3-7.7); Neutrophils % (A) 72 %; Platelet Count 175 k/uL (150-450); RBC 3.73 m/uL (3.80-5.40); RDW 12.9 % (11.5-15.5); WBC 7.1 k/uL (3.8-10.6)
[2023-02-18 06:12] LABS: African American GFR (CKD) >90 (>60 ml/min/1.73 sqM); Anion Gap 7 mmol/L; Blood Urea Nitrogen 10 mg/dL (7-17); Calcium 7.3 mg/dL (8.4-10.2); Carbon Dioxide 18 mmol/L (22-30); Chloride 111 mmol/L (98-107); Glucose 85 mg/dL (74-99); Non-African American GFR(CKD) >90 (>60 ml/min/1.73 sqM); Potassium 3.5 mmol/L (3.5-5.1); Sodium 136 mmol/L (137-145)
[2023-02-18 06:21] LABS: Basophils % (A) 0 %; Eosinophils # (A) 0.1 k/uL (0-0.7); Eosinophils % (A) 1 %; HCT 35.5 % (34.0-46.0); HGB 11.9 gm/dL (11.4-16.0); Lymphocytes # (A) 1.7 k/uL (1.0-4.8); Lymphocytes % (A) 20 %; MCHC 33.6 g/dL (31.0-37.0); MCV 92.1 fL (80.0-100.0); Mean Platelet Volume 7.8; Monocytes # (A) 0.5 k/uL (0-1.0); Monocytes % (A) 6 %; Neutrophils # (A) 6.2 k/uL (1.3-7.7); Neutrophils % (A) 72 %; Platelet Count 205 k/uL (150-450); RBC 3.85 m/uL (3.80-5.40); RDW 12.8 % (11.5-15.5); WBC 8.6 k/uL (3.8-10.6)
[2023-02-18 06:46] LABS: Basophils % (A) 0 %; Eosinophils # (A) 0.1 k/uL (0-0.7); Eosinophils % (A) 1 %; HCT 35.5 % (34.0-46.0); HGB 11.9 gm/dL (11.4-16.0); Lymphocytes # (A) 1.7 k/uL (1.0-4.8); Lymphocytes % (A) 20 %; MCHC 33.6 g/dL (31.0-37.0); MCV 92.1 fL (80.0-100.0); Mean Platelet Volume 7.8; Monocytes # (A) 0.5 k/uL (0-1.0); Monocytes % (A) 6 %; Neutrophils # (A) 6.2 k/uL (1.3-7.7); Neutrophils % (A) 72 %; Platelet Count 205 k/uL (150-450); RBC 3.85 m/uL (3.80-5.40); RDW 12.8 % (11.5-15.5); WBC 8.6 k/uL (3.8-10.6)
--- NOTE | 2023-02-18 07:38 | P.PN ---
Subjective Progress Note Date: 02/18/23 PROGRESS NOTE The patient is a 42-year-old female who presented with acute dyspnea and chest discomfort, was diagnosed with bilateral pulmonary embolism. She had evidence of DVT in August and was anticoagulated for 3 months at that time. Recently she has not been active physically after an injury to her left knee. She was found to have evidence of RV strain by CAT scan and echo. She underwent EKOS proc edure yesterday. She's feeling much better this morning with improvement in her breathing. Her heart rate is better. She denies any chest discomfort, dizziness or palpitations. She continues to be in sinus mechanism. She has no nausea or vomiting. Medications: He was on IV heparin during the infusions of her TPA PHYSICAL EXAMINATION: Blood pressure 115/80 heart rate 104 LUNGS: Clear to auscultation HEART: Regular rate and rhythm, S1, S2. No S3. No systolic murmur ABDOMEN: Soft, nontender, no organomegaly EXTREMETIES: No edema, right groin no hematoma, left groin with catheter in place LAB: Hemoglobin 11.6, BUN 10, creatinine 0.53 IMPRESSION: 1. Status post bilateral pulmonary embolism and EKOS procedure 2. Prior history of DVT 3. Recent injury to the left knee 4. Evidence of RV strain and pulmonary hypertension PLAN: 1. Start oral Eliquis 2. Patient would require lifetime anticoagulation 3. Obtain an ultrasound of lower extremities 4. Depending on her progress probable discharge home in 24-48 hours Objective - Vital Signs Vital signs: Vital Signs Temp 98.0 F 02/17/23 20:00 Pulse 104 H 02/17/23 22:00 Resp 15 02/17/23 22:00 BP 115/85 02/17/23 22:00 Pulse Ox 96 02/17/23 22:00 FiO2 Intake & Output 02/17/23 02/18/23 02/18/23 18:59 06:59 18:59 Intake Total 239.551 750 Output Total 0 950 Balance 239.551 -200 Weight 76.204 kg 81.4 kg Intake: IV 200 750 Sodium Chloride 0.9% 1, 150 750 000 ml @ 75 mls/hr IV . [id number] STA Rx#:[id number] Intake, IV Titration 39.551 Amount Heparin Sod,Pork in 0.45% 39.551 NaCl 25,000 unit In 0.45 % NaCl 1 250ml.bag @ 18 UNITS/KG/HR 13.717 mls/hr IV .[id number] [facility] Rx#: [id number] Output: Urine 0 950 Other: # Voids 0 0 - Labs CBC & Chem 7: 02/18/23 04:16 02/18/23 04:16 Labs: Abnormal Lab Results - Last 24 Hours (Table) 02/17/23 02/17/23 02/17/23 Range/Units 11:59 11:59 11:59 WBC 12.8 H (3.8-10.6) k/uL RBC (3.80-5.40) m/uL Hct 46.1 H (34.0-46.0) % Neutrophils # 9.9 H (1.3-7.7) k/uL Fibrinogen (200-500) mg/dL D-Dimer (<0.60) mg/L FEU Sodium (137-145) mmol/L Potassium (3.5-5.1) mmol/L Chloride (98-107) mmol/L Carbon Dioxide 21 L (22-30) mmol/L Creatinine (0.52-1.04) mg/dL Glucose 120 H (74-99) mg/dL Calcium (8.4-10.2) mg/dL AST 37 H (14-36) U/L Troponin I 2.000 H* (0.000-0.034) ng/mL 02/17/23 02/17/23 02/17/23 Range/Units 11:59 18:33 18:33 WBC (3.8-10.6) k/uL RBC (3.80-5.40) m/uL Hct (34.0-46.0) % Neutrophils # (1.3-7.7) k/uL Fibrinogen 578 H (200-500) mg/dL D-Dimer 4.25 H (<0.60) mg/L FEU Sodium 135 L (137-145) mmol/L Potassium 3.2 L (3.5-5.1) mmol/L Chloride 108 H (98-107) mmol/L Carbon Dioxide (22-30) mmol/L Creatinine 0.51 L (0.52-1.04) mg/dL Glucose (74-99) mg/dL Calcium 7.9 L (8.4-10.2) mg/dL AST (14-36) U/L Troponin I (0.000-0.034) ng/mL 02/18/23 02/18/23 Range/Units 04:16 04:16 WBC (3.8-10.6) k/uL RBC 3.73 L (3.80-5.40) m/uL Hct (34.0-46.0) % Neutrophils # (1.3-7.7) k/uL Fibrinogen (200-500) mg/dL D-Dimer (<0.60) mg/L FEU Sodium 136 L (137-145) mmol/L Potassium (3.5-5.1) mmol/L Chloride 111 H (98-107) mmol/L Carbon Dioxide 18 L (22-30) mmol/L Creatinine (0.52-1.04) mg/dL Glucose (74-99) mg/dL Calcium 7.3 L (8.4-10.2) mg/dL AST (14-36) U/L Troponin I (0.000-0.034) ng/mL
--- NOTE | 2023-02-18 08:26 | US ---
EXAMINATION TYPE: US venous doppler duplex LE DATE OF EXAM: 02/18/2023 8:15 AM COMPARISON: US 12/18/22, 09/25/22 CLINICAL INDICATION: Female, 42 years old with history of pe; PE. SIDE PERFORMED: Bilateral TECHNIQUE: The lower extremity deep venous system is examined utilizing real time linear array sonog kenneth with graded compression, doppler sonography and color-flow sonography. VESSELS IMAGED: Common Femoral Vein Deep Femoral Vein Greater Saphenous Vein * Femoral Vein Popliteal Vein Small Saphenous Vein * Proximal Calf Veins (* superficial vessels) Right Leg: No evidence of DVT. Left Leg: Unable to scan upper CFV and GSV due to bandage within groin. Lower CFV was imaged. No e vidence of DVT. IMPRESSION: No evidence of DVT.
[2023-02-18 08:43] LABS: Basophils % (A) 0 %; Eosinophils # (A) 0.1 k/uL (0-0.7); Eosinophils % (A) 1 %; HCT 34.7 % (34.0-46.0); HGB 11.8 gm/dL (11.4-16.0); Lymphocytes # (A) 1.3 k/uL (1.0-4.8); Lymphocytes % (A) 18 %; MCH 31.5 pg (25.0-35.0); MCHC 33.9 g/dL (31.0-37.0); Mean Platelet Volume 8.1; Monocytes # (A) 0.4 k/uL (0-1.0); Monocytes % (A) 6 %; Neutrophils # (A) 5.3 k/uL (1.3-7.7); Neutrophils % (A) 75 %; Platelet Count 183 k/uL (150-450); RBC 3.73 m/uL (3.80-5.40); RDW 12.8 % (11.5-15.5); WBC 7.1 k/uL (3.8-10.6)
--- NOTE | 2023-02-18 08:50 | CA ---
Transthoracic Echo Report Name: Isabella Alvarez Age: 42 Gender: F : 1980 Exam Date: 02/17/2023 14:12 Exam Location: [facility] Ht (in): 66 Wt (lb): 168 Ordering Physician: Ariel Blanca MD Attending/Referring Phys: Documentation Liaison Kaz Garcia Procedure CPT: Indications: pe, eval for right heart strain Cardiac Hx: Technical Quality: Fair Contrast 1: Total Dose (mL): Contrast 2: Total Dose (mL): MEASUREMENTS (Male / Female) Normal Values 2D ECHO LV Diastolic Diameter PLAX 3.3 cm 4.2 - 5.9 / 3.9 - 5.3 cm LV Systolic Diameter PLAX 2.0 cm IVS Diastolic Thickness 0.8 cm 0.6 - 1.0 / 0.6 - 0.9 cm LVPW Diastolic Thickness 0.9 cm 0.6 - 1.0 / 0.6 - 0.9 cm LV Relative Wall Thickness 0.5 RV Internal Dim ED PLAX 4.8 cm LVOT Diameter 1.8 cm Aortic Root Diameter 2.5 cm LA Systolic Diameter LX 1.6 cm 3.0 - 4.0 / 2.7 - 3.8 cm LV Diastolic Volume MOD 4C 42.8 cm??? LV Systolic Volume MOD 4C 14.1 cm??? LV Ejection Fraction MOD 4C 67.1 % LV Cardiac Index MOD 4C 1815.1 cm???/min???m??? LV Diastolic Length 4C 6.7 cm LV Systolic Length 4C 6.2 cm DOPPLER AV Peak Velocity 117.0 cm/s AV Peak Gradient 5.5 mmHg LVOT Peak Velocity 93.7 cm/s LVOT Peak Gradient 3.5 mmHg LVOT Velocity Time Integral 11.8 cm LVOT Stroke Volume 31.0 cm??? LVOT Stroke Volume Index 16.7 ml/m??? LVOT Cardiac Index 1957.0 cm???/min???m??? AV Area Cont Eq pk 2.1 cm??? MV Peak Velocity 91.9 cm/s MV Peak Gradient 3.4 mmHg MV Mean Velocity 50.5 cm/s MV Mean Gradient 1.2 mmHg MV Velocity Time Integral 17.6 cm Mitral E Point Velocity 55.4 cm/s Mitral A Point Velocity 68.4 cm/s Mitral E to A Ratio 0.8 MV Deceleration Time 102.5 ms MV E' Velocity 9.7 cm/s Mitral E to MV E' Ratio 5.7 TR Peak Velocity 372.7 cm/s TR Peak Gradient 55.6 mmHg Right Ventricular Systolic Press 60.6 mmHg PV Peak Velocity 91.5 cm/s PV Peak Gradient 3.3 mmHg FINDINGS Left Ventricle Normal V size and wall thickness. Left ventricular ejection fraction is estimated at _55-60 %. Right Ventricle Severe right ventricular dilatation. RVSP=61mmHg. Right Atrium Normal right atrial size. Left Atrium Normal left atrial size. Mitral Valve Structurally normal mitral valve. Trace MR. Aortic Valve Trileaflet aortic valve. No aortic valve stenosis or regurgitation. Tricuspid Valve Structurally normal tricuspid valve. Severe TR. Pulmonic Valve Structurally normal pulmonic valve. Mild to moderate PI. Pericardium Normal pericardium. Aorta Normal size aortic root. CONCLUSIONS Dilated right ventricle with severe pulmonary hypertension LV systolic function is normal Previewed by: Dr. Saad Villalta MD (Electronically Signed) Final Date: 18 February 2023 08:48
[2023-02-18] MEDS: APIXABAN 5 MG TAB PO SCH ×2 (09:00→21:28)
[2023-02-18 09:25] LABS: African American GFR (CKD) >90 (>60 ml/min/1.73 sqM); Anion Gap 6 mmol/L; Blood Urea Nitrogen 9 mg/dL (7-17); Calcium 7.4 mg/dL (8.4-10.2); Carbon Dioxide 21 mmol/L (22-30); Chloride 110 mmol/L (98-107); Glucose 83 mg/dL (74-99); Non-African American GFR(CKD) >90 (>60 ml/min/1.73 sqM); Potassium 3.7 mmol/L (3.5-5.1); Sodium 137 mmol/L (137-145)
--- NOTE | 2023-02-18 11:52 | P.PN ---
Subjective Progress Note Date: 02/18/23 Principal diagnosis: Shortness of breath. Pulmonary consult dated 02/17/2023. 42-year-old female seen in the emergency department, on February 17, by Dr. Blanca. She presented to the emergency department complaining of chest discomfort, and shortness of breath, and rapid heartbeat. The patient has a history of a DVT in the right leg, back in August, completing 3 months of Eliquis. Currently, about 4 weeks ago, she dislocated her left knee the patient's symptoms apparently were worse with exertion. She denied a nausea, vomiting or diarrhea. She denied any urinary complaints. She ended up having a CT angiogram which showed a significant pulmonary embolism. The patient was seen by cardiology, and, they recommended EKOS. The patient is seen in the intensive care unit, room 264. She's currently on saline at 75 mL an hour, as well as IV heparin and tPA. White count 12.8, hemoglobin 15.2, hematocrit 46.1, and platelet count 271,000. D-dimer was 4.25. Sodium 137, potassium 3.5, chlorides 104, CO2 21, BUN 15, and creatinine 0.67. Her troponin was 2. Her N-terminal proBNP was 6140. Her chest x-ray was normal. Her CT angiogram showed bilateral pulmonary emboli with moderate to severe burden. The clot involves the distal main pulmonary arteries and all the lobar branches as well as segmental and some segmental branches. Affected areas include primarily lower lobe but to a lesser extent the right upper lobe. In addition, there may be a pulmonary infarct developing in the periphery of the right lung base. There is evidence of right heart strain. Progress note dated 02/18/2023. 42-year-old female again seen in the intensive care unit, room 264. I saw her yesterday in consultation. She presented with a pulmonary embolism, which was rather large, bilateral, with evidence of right heart strain. The patient underwent EKOS procedure, and, was admitted to the intensive care unit. Today is postoperative day #1. The patient's not receiving any IV fluids. The patient is not on any oxygen, and feels much better. The patient was started on a factor X a inhibitor. Labs today include a white count 7.1, hemoglobin 11.8, hematocrit 34.7, and a normal platelet count. Sodium 137, potassium 3.7, chlorides 110, CO2 21, BUN 9, and creatinine 0.49. Dopplers of the lower extremities were negative. Objective - Vital Signs Vital signs: Vital Signs Temp 98.7 F 02/18/23 08:00 Pulse 94 02/18/23 11:00 Resp 21 02/18/23 11:00 BP 114/78 02/18/23 11:00 Pulse Ox 97 02/18/23 11:00 FiO2 Intake & Output 02/17/23 02/18/23 02/18/23 18:59 06:59 18:59 Intake Total 239.551 825 225 Output Total 0 1900 950 Balance 239.551 -1075 -725 Weight 76.204 kg 81.4 kg Intake: IV 200 825 225 Sodium Chloride 0.9% 1, 150 825 225 000 ml @ 75 mls/hr IV . [id number] STA Rx#:[id number] Intake, IV Titration 39.551 Amount Heparin Sod,Pork in 0.45% 39.551 NaCl 25,000 unit In 0.45 % NaCl 1 250ml.bag @ 18 UNITS/KG/HR 13.717 mls/hr IV .[id number] AVELINO Rx#: [id number] Output: Urine 0 1900 950 Other: # Voids 0 0 - Exam No acute distress, oriented 3. Currently on room air. Saturations 97 %. HEENT examination is grossly unremarkable. Mucous membranes are moist. No oral lesions. Neck supple. Full range of motion. No adenopathy thyromegaly or neck vein distention. Cardiovascular examination reveals regular rhythm rate. S1-S2 normal. No S3 or S4. No discernible murmur noted. Heart rate 94 bpm. Lungs reveal clear breath sounds. Breath sounds are equal bilaterally. No adventitious lung sounds including wheezes rhonchi or crackles. Abdomen soft bowel sounds are heard. No masses or tenderness. Extremities are intact. No cyanosis clubbing or edema. Skin is without rash or lesion. Neurologic examination is brief but nonfocal. - Labs CBC & Chem 7: 02/18/23 07:39 02/18/23 07:39 Labs: Abnormal Lab Results - Last 24 Hours (Table) 02/17/23 02/17/23 02/17/23 Range/Units 11:59 11:59 11:59 WBC 12.8 H (3.8-10.6) k/uL RBC (3.80-5.40) m/uL Hct 46.1 H (34.0-46.0) % Neutrophils # 9.9 H (1.3-7.7) k/uL Fibrinogen (200-500) mg/dL D-Dimer (<0.60) mg/L FEU Sodium (137-145) mmol/L Potassium (3.5-5.1) mmol/L Chloride (98-107) mmol/L Carbon Dioxide 21 L (22-30) mmol/L Creatinine (0.52-1.04) mg/dL Glucose 120 H (74-99) mg/dL Calcium (8.4-10.2) mg/dL AST 37 H (14-36) U/L Troponin I 2.000 H* (0.000-0.034) ng/mL 02/17/23 02/17/23 02/17/23 Range/Units 11:59 18:33 18:33 WBC (3.8-10.6) k/uL RBC (3.80-5.40) m/uL Hct (34.0-46.0) % Neutrophils # (1.3-7.7) k/uL Fibrinogen 578 H (200-500) mg/dL D-Dimer 4.25 H (<0.60) mg/L FEU Sodium 135 L (137-145) mmol/L Potassium 3.2 L (3.5-5.1) mmol/L Chloride 108 H (98-107) mmol/L Carbon Dioxide (22-30) mmol/L Creatinine 0.51 L (0.52-1.04) mg/dL Glucose (74-99) mg/dL Calcium 7.9 L (8.4-10.2) mg/dL AST (14-36) U/L Troponin I (0.000-0.034) ng/mL 02/18/23 02/18/23 02/18/23 Range/Units 04:16 04:16 07:39 WBC (3.8-10.6) k/uL RBC 3.73 L 3.73 L (3.80-5.40) m/uL Hct (34.0-46.0) % Neutrophils # (1.3-7.7) k/uL Fibrinogen (200-500) mg/dL D-Dimer (<0.60) mg/L FEU Sodium 136 L (137-145) mmol/L Potassium (3.5-5.1) mmol/L Chloride 111 H (98-107) mmol/L Carbon Dioxide 18 L (22-30) mmol/L Creatinine (0.52-1.04) mg/dL Glucose (74-99) mg/dL Calcium 7.3 L (8.4-10.2) mg/dL AST (14-36) U/L Troponin I (0.000-0.034) ng/mL 02/18/23 Range/Units 07:39 WBC (3.8-10.6) k/uL RBC (3.80-5.40) m/uL Hct (34.0-46.0) % Neutrophils # (1.3-7.7) k/uL Fibrinogen (200-500) mg/dL D-Dimer (<0.60) mg/L FEU Sodium (137-145) mmol/L Potassium (3.5-5.1) mmol/L Chloride 110 H (98-107) mmol/L Carbon Dioxide 21 L (22-30) mmol/L Creatinine 0.49 L (0.52-1.04) mg/dL Glucose (74-99) mg/dL Calcium 7.4 L (8.4-10.2) mg/dL AST (14-36) U/L Troponin I (0.000-0.034) ng/mL Assessment and Plan Assessment: Submassive pulmonary embolism, with evidence of pulmonary infarction, right lung base, and development of a Joseph's hump. Status post EKOS, 02/17/2023, postoperative day #1. Recent dislocation of the left knee, 4 weeks ago, with patient being sedentary afterwards History of DVT, right leg, Aug, 2022, status post 3 months of Eliquis. No other significant medical history. Plan: Plan dated 02/17/2023. The patient is admitted to the intensive care unit, after undergoing EKOS for submassive pulmonary embolism. CT angiogram showed bilateral clot, with right heart strain, and developing Joseph's hump, at the right lung base. The patient has a history of previous DVT, involving the right leg, back in August 2022, and more recently, dislocated her left knee, and has been inactive subsequently. The patient's currently on room air. Her vital signs are stable. She's receiving IV heparin and tPA. We will continue to follow and make recommendations along the way. Plan dated 02/18/2023. The patient was admitted to the intensive care unit yesterday. The patient underwent EKOS for her massive pulmonary embolism. The patient is stable from the respiratory standpoint, and hemodynamic standpoint. The patient has been transitioned to a factor X a inhibitor. Labs, x-rays, medications are reviewed. No additional recommendations are made. The patient is currently not on any supplemental oxygen or any IV fluids. We will continue to follow make recommendations along the way. She will need follow-up in our office, and, down the road, we need a follow-up CT angiogram. Dopplers of the lower extremities were negative. Time with Patient: Less than 30
--- NOTE | 2023-02-18 17:30 | P.PN ---
Progress Note - Text Progress Note Date: 02/18/23 Chief Complaint: Short of breath Pleasant 42-year-old patient who follows with Dr. Karolina Romero. Around this 2022 patient developed a clot in the right leg. Received 3 months of anticoagulation. It was then discontinued. Since then patient been having bilateral auditory swelling and was taking a diuretic for the same. About a month ago patient dislocated her left knee. Has been up in a brace since then. Decreased activity. Pain which has been working from home. Yesterday patient Some palpitation chest pressure shortness of breath. Hasn't some pain in the right chest with deep respiration. Decided to come in today. Patient was discovered to have severe bilateral pulmonary embolism. Was taken to the ICU and alteplase was given withEKOS. Subsequently patient on IV heparin. In the ICU. Currently breathing is stable. No chest pain. Patient denies any prior history of any miscarriage or . No other blood clot history. Her mother did have a blood clot attribute it to sedentary habit. February 18: ICU. Patient is IV drip has been discontinued. Started on eliquis. Have ordered YUMIKO stockings. Doppler ultrasound negative for DVT in both legs. Incentive spirometry. Discussed at length with the patient and . Questions answered. Activity as tolerated. Denies shortness of breath or any inspiratory chest pain. Active Medications Apixaban (Apixaban 5 Mg Tab) 10 mg PO BID AVELINO; Taper Stop: 03/27/23 08:59 Last Admin: 02/18/23 09:00 Dose: 10 mg Miscellaneous Information (Potassium Replacement Protocol 1 Each Misc) 1 each MISCELLANE DAILY PRN; Protocol PRN Reason: Per Protocol Naloxone HCl (Naloxone 0.4 Mg/Ml 1 Ml Vial) 0.2 mg IV Q2M PRN PRN Reason: Opioid Reversal Past medical history to include: Right leg blood clot in 2022. Left knee displaced. Social history: Lives with her . Does insurance medical claim. Occasional marijuana. Occasional alcohol. Physical examination: VITAL SIGNS: 98.7, 80, 17, 122/81, 96% room air GENERAL: Laying in bed, comfortable EYES: Pupils equal. Conjunctiva normal. HEENT: External appearance of nose and ears normal, oral cavity grossly normal. NECK: JVD not raised; masses not palpable. HEART: First and second heart sounds are normal; no edema. LUNGS: Respiratory rate normal; clear to auscultation. ABDOMEN: Soft, nontender, liver spleen not palpable, no masses palpable. access through the right groin. PSYCH: Alert and oriented x3; mood and affect normal. MUSCULOSKELETAL:No Clubbing/cyanosis;muscles-grossly intact INVESTIGATIONS, reviewed in the clinical context: Venous Doppler ultrasound lower extremity: Negative for DVT. February 18: White count 7.1 hemoglobin 11.8 platelets 733 0.7 creatinine 0.49 February 17: White count 12.8 hemoglobin 15.2 platelets 271 sodium 137 potassium 3.5 creatinine 0.67 Troponin I 2.0 proBNP 6140 EKG tracing personally reviewed by me-sinus tachycardia. P pulmonale. Some ST- T wave changes. Chest x-ray film personally reviewed by me-unremarkable CTA chest: Bilateral pulmonary embolism with moderate to severe burden. Clot involves the distal main pulmonary arteries and all lobar branches extensively throughout the segmental and subsegmental branches of the lower lobes. Suspect early developing pulmonary infarct of the peripheral the right base. Some right heart strain. Indeterminate 5.5 cm lesion of the mid liver. 2-D echocardiogram: EF 55-60%. Severe right ventricular dilatation. Severe tricuspid regurgitation. Mild to moderate pulmonic regurgitation. Assessment and plan: -Acute bilateral pulmonary embolism precipitated by patient remaining a left leg brace last 3-4 weeks. Patient also had a DVT in the right knee around of this year. Did receive 3 months of anticoagulation. Status post alteplase followed by IV heparin.EKOS Eliquis started.-Lifelong -IV heparin monitoring-discontinued Follow PTT -Severe right ventricular dilatation, severe tricuspid regurgitation, mild to moderate pulmonic regurgitation secondary to large PE. Follow with cardiology -Probable right pulmonary infarct secondary to PE. IV heparin Eliquis -Liver 5.5 cm lesion. Follow-up. -Type II myocardial infarction from right ventricle strain. Secondary to PE. IV heparin -Sinus tachycardia from above -Left patella was displaced. Has been in the left knee brace for last 3-4 weeks. Follow with orthopedics outpatient Care was discussed with the patient. And . Questions answered. YUMIKO stockings. Eliquis-lifelong. Incentive spirometry. Activity as tolerated.
[2023-02-18] MEDS ORDERED: ACETAMINOPHEN TAB 325 MG TAB PO PRN (18:43)
[2023-02-19 04:44] LABS: Basophils % (A) 0 %; Eosinophils # (A) 0.2 k/uL (0-0.7); Eosinophils % (A) 4 %; HCT 33.1 % (34.0-46.0); HGB 11.1 gm/dL (11.4-16.0); Lymphocytes # (A) 1.2 k/uL (1.0-4.8); Lymphocytes % (A) 25 %; MCH 30.6 pg (25.0-35.0); MCHC 33.5 g/dL (31.0-37.0); MCV 91.4 fL (80.0-100.0); Mean Platelet Volume 8.3; Monocytes # (A) 0.3 k/uL (0-1.0); Monocytes % (A) 7 %; Neutrophils % (A) 62 %; Platelet Count 176 k/uL (150-450); RBC 3.62 m/uL (3.80-5.40); RDW 12.6 % (11.5-15.5); WBC 4.9 k/uL (3.8-10.6)
[2023-02-19 04:55] LABS: African American GFR (CKD) >90 (>60 ml/min/1.73 sqM); Anion Gap 3 mmol/L; Blood Urea Nitrogen 7 mg/dL (7-17); Calcium 7.6 mg/dL (8.4-10.2); Carbon Dioxide 22 mmol/L (22-30); Chloride 110 mmol/L (98-107); Glucose 98 mg/dL (74-99); Non-African American GFR(CKD) >90 (>60 ml/min/1.73 sqM); Potassium 3.5 mmol/L (3.5-5.1); Sodium 135 mmol/L (137-145)
[2023-02-19] MEDS ORDERED: Potassium Replacement Protocol 1 EACH MISC MISCELLANE PRN (05:04)
[2023-02-19] MEDS: POTASSIUM CHLORIDE ER 20 MEQ TAB.ER PO SCH ×2 (05:49→06:54)
--- NOTE | 2023-02-19 07:48 | P.PN ---
Subjective Progress Note Date: 02/19/23 PROGRESS NOTE The patient is a 42-year-old female who presented with acute dyspnea and chest discomfort, was diagnosed with bilateral pulmonary embolism. She had evidence of DVT in August and was anticoagulated for 3 months at that time. Recently she has not been active physically after an injury to her left knee. She was found to have evidence of RV strain by CAT scan and echo. She underwent EKOS proc edure yesterday. She's feeling much better this morning with improvement in her breathing. Her heart rate is better. She denies any chest discomfort, dizziness or palpitations. She continues to be in sinus mechanism. She has no nausea or vomiting. February 19: The patient is feeling much better today, her breathing is better. She is in sinus mechanism. She denies any chest discomfort, dizziness or palpitations. Her ultrasound of the lower extremities showed no evidence of DVT. She is on oral anticoagulation. She denies any nausea or vomiting. Medications: Eliquis 10 mg twice a day PHYSICAL EXAMINATION: Blood pressure 105/70 heart rate 80 LUNGS: Clear to auscultation HEART: Regular rate and rhythm, S1, S2. No S3. No systolic murmur ABDOMEN: Soft, nontender, no organomegaly EXTREMETIES: No edema, right groin no hematoma, left groin no hematoma LAB: Hemoglobin 11.1, BUN 7, creatinine 0.47 IMPRESSION: 1. Status post bilateral pulmonary embolism and EKOS procedure 2. Prior history of DVT 3. Recent injury to the left knee 4. Evidence of RV strain and pulmonary hypertension PLAN: 1. Continue anticoagulation for life 2. If stable probable discharge home today and follow-up as an outpatient to reevaluate right ventricle size and systolic function Objective - Vital Signs Vital signs: Vital Signs Temp 98.2 F 02/19/23 04:00 Pulse 81 02/19/23 07:00 Resp 13 02/19/23 07:00 BP 105/75 02/19/23 07:00 Pulse Ox 95 02/19/23 07:00 FiO2 Intake & Output 02/18/23 02/19/23 02/19/23 18:59 06:59 18:59 Intake Total 225 Output Total 1250 300 Balance -1025 -300 Weight 82.8 kg Intake: IV 225 Sodium Chloride 0.9% 1, 225 000 ml @ 75 mls/hr IV . [id number] STA Rx#:[id number] Output: Urine 1250 300 Other: Voiding Method Toilet # Voids 0 0 - Labs CBC & Chem 7: 02/19/23 04:33 02/19/23 04:33 Labs: Abnormal Lab Results - Last 24 Hours (Table) 02/18/23 02/18/23 02/19/23 Range/Units 07:39 07:39 04:33 RBC 3.73 L (3.80-5.40) m/uL Hgb (11.4-16.0) gm/dL Hct (34.0-46.0) % Sodium 135 L (137-145) mmol/L Chloride 110 H 110 H (98-107) mmol/L Carbon Dioxide 21 L (22-30) mmol/L Creatinine 0.49 L 0.47 L (0.52-1.04) mg/dL Calcium 7.4 L 7.6 L (8.4-10.2) mg/dL 02/19/23 Range/Units 04:33 RBC 3.62 L (3.80-5.40) m/uL Hgb 11.1 L (11.4-16.0) gm/dL Hct 33.1 L (34.0-46.0) % Sodium (137-145) mmol/L Chloride (98-107) mmol/L Carbon Dioxide (22-30) mmol/L Creatinine (0.52-1.04) mg/dL Calcium (8.4-10.2) mg/dL
[2023-02-19] MEDS: APIXABAN 5 MG TAB PO SCH (08:13)
[2023-02-19 08:26] VITALS: TEMP 97.1
[2023-02-19 11:27] VITALS: BP 117/76; PULSE 92; RESP 8
--- NOTE | 2023-02-19 12:37 | P.PN ---
Subjective Progress Note Date: 02/19/23 Principal diagnosis: Shortness of breath. Pulmonary consult dated 02/17/2023. 42-year-old female seen in the emergency department, on February 17, by Dr. Blanca. She presented to the emergency department complaining of chest discomfort, and shortness of breath, and rapid heartbeat. The patient has a history of a DVT in the right leg, back in August, completing 3 months of Eliquis. Currently, about 4 weeks ago, she dislocated her left knee the patient's symptoms apparently were worse with exertion. She denied a nausea, vomiting or diarrhea. She denied any urinary complaints. She ended up having a CT angiogram which showed a significant pulmonary embolism. The patient was seen by cardiology, and, they recommended EKOS. The patient is seen in the intensive care unit, room 264. She's currently on saline at 75 mL an hour, as well as IV heparin and tPA. White count 12.8, hemoglobin 15.2, hematocrit 46.1, and platelet count 271,000. D-dimer was 4.25. Sodium 137, potassium 3.5, chlorides 104, CO2 21, BUN 15, and creatinine 0.67. Her troponin was 2. Her N-terminal proBNP was 6140. Her chest x-ray was normal. Her CT angiogram showed bilateral pulmonary emboli with moderate to severe burden. The clot involves the distal main pulmonary arteries and all the lobar branches as well as segmental and some segmental branches. Affected areas include primarily lower lobe but to a lesser extent the right upper lobe. In addition, there may be a pulmonary infarct developing in the periphery of the right lung base. There is evidence of right heart strain. Progress note dated 02/18/2023. 42-year-old female again seen in the intensive care unit, room 264. I saw her yesterday in consultation. She presented with a pulmonary embolism, which was rather large, bilateral, with evidence of right heart strain. The patient underwent EKOS procedure, and, was admitted to the intensive care unit. Today is postoperative day #1. The patient's not receiving any IV fluids. The patient is not on any oxygen, and feels much better. The patient was started on a factor X a inhibitor. Labs today include a white count 7.1, hemoglobin 11.8, hematocrit 34.7, and a normal platelet count. Sodium 137, potassium 3.7, chlorides 110, CO2 21, BUN 9, and creatinine 0.49. Dopplers of the lower extremities were negative. Progress note dated 02/19/2023. 42-year-old female seen in the intensive care unit, room 264. Currently, the patient's doing well. She's not on any fluids, or supplemental oxygen. The patient was started on a factor X a inhibitor. She's not having any symptoms whatsoever. She has been cleared by cardiology to be discharged home. She den ies any chest pain, chest discomfort, shortness of breath, etc. Today's labs include a white count 4.9, hemoglobin 11.1, hematocrit 33.1, and a normal platelet count. Sodium is 135, potassium 3.5, chlorides 110, CO2 22, BUN 7, creatinine 0.47. Calcium is 7.6. Objective - Vital Signs Vital signs: Vital Signs Temp 97.1 F L 02/19/23 08:00 Pulse 92 02/19/23 11:00 Resp 8 L 02/19/23 11:00 BP 117/76 02/19/23 11:00 Pulse Ox 96 02/19/23 10:00 FiO2 Intake & Output 02/18/23 02/19/23 02/19/23 18:59 06:59 18:59 Intake Total 225 200 Output Total 1453 806 9071 Balance -1025 -300 -800 Weight 82.8 kg Intake: IV 225 Sodium Chloride 0.9% 1, 225 000 ml @ 75 mls/hr IV . [id number] STA Rx#:[id number] Oral 200 Output: Urine 0993 366 8653 Other: Voiding Method Toilet Toilet # Voids 0 0 - Exam No acute distress, oriented 3. Currently on room air. Saturations 96 %. HEENT examination is grossly unremarkable. Mucous membranes are moist. No oral lesions. Neck supple. Full range of motion. No adenopathy thyromegaly or neck vein distention. Cardiovascular examination reveals regular rhythm rate. S1-S2 normal. No S3 or S4. No discernible murmur noted. Heart rate 92 bpm. Lungs reveal clear breath sounds. Breath sounds are equal bilaterally. No adventitious lung sounds including wheezes rhonchi or crackles. Abdomen soft bowel sounds are heard. No masses or tenderness. Extremities are intact. No cyanosis clubbing or edema. Skin is without rash or lesion. Neurologic examination is brief but nonfocal. - Labs CBC & Chem 7: 02/19/23 04:33 02/19/23 04:33 Labs: Abnormal Lab Results - Last 24 Hours (Table) 02/19/23 02/19/23 Range/Units 04:33 04:33 RBC 3.62 L (3.80-5.40) m/uL Hgb 11.1 L (11.4-16.0) gm/dL Hct 33.1 L (34.0-46.0) % Sodium 135 L (137-145) mmol/L Chloride 110 H (98-107) mmol/L Creatinine 0.47 L (0.52-1.04) mg/dL Calcium 7.6 L (8.4-10.2) mg/dL Assessment and Plan Assessment: Submassive pulmonary embolism, with evidence of pulmonary infarction, right lung base, and development of a Joseph's hump. Status post EKOS, 02/17/2023, postoperative day #2. Recent dislocation of the left knee, 4 weeks ago, with patient being sedentary afterwards History of DVT, right leg, Aug, 2022, status post 3 months of Eliquis. No other significant medical history. Plan: Plan dated 02/17/2023. The patient is admitted to the intensive care unit, after undergoing EKOS for submassive pulmonary embolism. CT angiogram showed bilateral clot, with right heart strain, and developing Joseph's hump, at the right lung base. The patient has a history of previous DVT, involving the right leg, back in August 2022, and more recently, dislocated her left knee, and has been inactive subsequently. The patient's currently on room air. Her vital signs are stable. She's receiving IV heparin and tPA. We will continue to follow and make recommendations along the way. Plan dated 02/18/2023. The patient was admitted to the intensive care unit yesterday. The patient underwent EKOS for her massive pulmonary embolism. The patient is stable from the respiratory standpoint, and hemodynamic standpoint. The patient has been transitioned to a factor X a inhibitor. Labs, x-rays, medications are reviewed. No additional recommendations are made. The patient is currently not on any supplemental oxygen or any IV fluids. We will continue to follow make recommendations along the way. She will need follow-up in our office, and, down the road, we need a follow-up CT angiogram. Dopplers of the lower extremities were negative. Plan dated 02/19/2023. The patient is doing much better. She is on a factor X a inhibitor. The patient may be discharged home today. She has been cleared by cardiology. She is on room air. No IV fluids. She denies all chest and pulmonary complaints. I'll see her in the office, and make sure that I set her up for a follow-up CT angiogram. No additional recommendations are made. Prognosis is guarded. Time with Patient: Less than 30
--- NOTE | 2023-02-19 16:24 | P.DS ---
Providers Date of admission: 02/17/23 14:33 Expected date of discharge: 02/19/23 Attending physician: Thom Clemente Consults: 02/17/23 13:48 Consult Physician Routine Consulting Provider: Donavan Alexander Consult Reason/Comments: PE with right heart strain Do you want consulting provider notified?: Yes Consult Physician Urgent Consulting Provider: [facility] Consult Reason/Comments: PE with right heart strain Do you want consulting provider notified?: Yes 02/17/23 16:43 Consult Physician Routine Consulting Provider: Bebe Walters Consult Reason/Comments: Post PE Care Do you want consulting provider notified?: Already Contacted Primary care physician: Marlen Romero [facility] Course: Chief Complaint: Short of breath Pleasant 42-year-old patient who follows with Dr. Karolina Romero. Around this 2022 patient developed a clot in the right leg. Received 3 months of anticoagulation. It was then discontinued. Since then patient been having bilateral auditory swelling and was taking a diuretic for the same. About a month ago patient dislocated her left knee. Has been up in a brace since then. Decreased activity. Pain which has been working from home. Yesterday patient Some palpitation chest pressure shortness of breath. Hasn't some pain in the right chest with deep respiration. Decided to come in today. Patient was discovered to have severe bilateral pulmonary embolism. Was taken to the ICU and alteplase was given withEKOS. Subsequently patient on IV heparin. In the ICU. Currently breathing is stable. No chest pain. Patient denies any prior history of any miscarriage or . No other blood clot history. Her mother did have a blood clot attribute it to sedentary habit. February 18: ICU. Patient is IV drip has been discontinued. Started on eliquis. Have ordered YUMIKO stockings. Doppler ultrasound negative for DVT in both legs. Incentive spirometry. Discussed at length with the patient and . Questions answered. Activity as tolerated. Denies shortness of breath or any inspiratory chest pain. February 19: ICU. Did walk in the hallway. No shortness of breath. YUMIKO stockings. Started on eliquis. Patient also follow-up with vascular. Hematology. Anticoagulation lifelong. Care discussed with the patient and . Discussion and discharge planning more than 35 minutes Past medical history to include: Right leg blood clot in 2022. Left knee displaced. Social history: Lives with her . Does insurance medical claim. Occasional marijuana. Occasional alcohol. Physical examination: VITAL SIGNS: 80, 14, 117 with 76, 96% room air GENERAL: Up in chair, comfortable EYES: Pupils equal. Conjunctiva normal. HEENT: External appearance of nose and ears normal, oral cavity grossly normal. NECK: JVD not raised; masses not palpable. HEART: First and second heart sounds are normal; no edema. LUNGS: Respiratory rate normal; clear to auscultation. ABDOMEN: Soft, nontender, liver spleen not palpable, no masses palpable. access through the right groin. PSYCH: Alert and oriented x3; mood and affect normal. MUSCULOSKELETAL:No Clubbing/cyanosis;muscles-grossly intact INVESTIGATIONS, reviewed in the clinical context: February 19: White count 4.9 hemoglobin 11.1 potassium 3.5 creatinine 0.47 Venous Doppler ultrasound lower extremity: Negative for DVT. February 18: White count 7.1 hemoglobin 11.8 platelets 733 0.7 creatinine 0.49 February 17: White count 12.8 hemoglobin 15.2 platelets 271 sodium 137 potassium 3.5 creatinine 0.67 Troponin I 2.0 proBNP 6140 EKG tracing personally reviewed by me-sinus tachycardia. P pulmonale. Some ST- T wave changes. Chest x-ray film personally reviewed by me-unremarkable CTA chest: Bilateral pulmonary embolism with moderate to severe burden. Clot involves the distal main pulmonary arteries and all lobar branches extensively throughout the segmental and subsegmental branches of the lower lobes. Suspect early developing pulmonary infarct of the peripheral the right base. Some right heart strain. Indeterminate 5.5 cm lesion of the mid liver. 2-D echocardiogram: EF 55-60%. Severe right ventricular dilatation. Severe tricuspid regurgitation. Mild to moderate pulmonic regurgitation. Assessment and plan: -Acute bilateral pulmonary embolism precipitated by patient remaining a left leg brace last 3-4 weeks. Patient also had a DVT in the right knee around of this year. Did receive 3 months of anticoagulation. Status post alteplase followed by IV heparin.EKOS Eliquis -Lifelong -IV heparin monitoring-discontinued -Severe right ventricular dilatation, severe tricuspid regurgitation, mild to moderate pulmonic regurgitation secondary to large PE. Follow with cardiology -Probable right pulmonary infarct secondary to PE. IV heparin Eliquis -Liver 5.5 cm lesion. Follow-up outpatient. Discussed with patient. She will follow with her PCP and further workup outpatient. -Type II myocardial infarction from right ventricle strain. Secondary to PE. IV heparin -Left patella was displaced. Has been in the left knee brace for last 3-4 weeks. Follow with orthopedics outpatient Disposition: Home Plan - Discharge Summary Discharge Rx Participant: Yes New Discharge Prescriptions: New Acetaminophen Tab [Tylenol] 650 mg PO Q6HR PRN tab PRN Reason: Fever And/ Or Pain Apixaban [Eliquis] 10 mg PO BID #60 tab Continue Multivitamins, Thera [Multivitamin (formulary)] 1 tab PO DAILY Discontinued hydroCHLOROthiazide 25 mg PO DAILY Discharge Medication List Multivitamins, Thera [Multivitamin (formulary)] 1 tab PO DAILY 02/17/23 [History] Acetaminophen Tab [Tylenol] 650 mg PO Q6HR PRN tab 02/19/23 [Rx] Apixaban [Eliquis] 10 mg PO BID #60 tab 02/19/23 [Rx] Follow up Appointment(s)/Referral(s): Bebe Walters MD [STAFF PHYSICIAN] - 2 Weeks (Office will call with appt) Marlen Romero DO [Primary Care Provider] - 03/01/23 2:00 pm Donavan Alexander DO [Doctor of Osteopathic Medicine] - 1 Week Balwinder Chand MD [STAFF PHYSICIAN] - 02/25/23 11:30 am Patient Instructions/Handouts: Pulmonary Embolism (DC) Discharge Disposition: HOME SELF-CARE
--- NOTE | 2023-02-22 11:31 | CDI ---
Documentation Clarification Form Date: 02/22/2023 From: Zoey Tee Admit Date: 02/17/2023 02:33:00 PM Patient Name: Isabella Alvarez Visit Number: [id number] Discharge Date: 02/19/2023 12:35:00 PM ATTENTION: The Clinical Documentation Specialists (CDI) and [facility] Coding Staff appreciate your assistance in clarifying documentation. Please respond to the clarification below the line at the bottom and electronically sign. The CDI & [facility] Coding staff will review the response and follow-up if needed. Please note: Queries are made part of the Legal Health Record. If you have any questions, please contact the author of this message via ITS. Dr. Thom Clemente, There is documentation of extensively throughout segmental and subsegmental branches of the lower lobes and a lesser extent the right upper lobe, CT findings suggest right heart strain. Additional clarification is requested. History/Risk Factors: Hx of DVT in August 2022 and received 3 months of anticoagulation, s/p dislocated left knee and in a brace Clinical Indicators: CTA revealed extensively throughout segmental and subsegmental branches of the lower lobes and a lesser extent the right upper lobe, CT findings suggest right heart strain. Echocardiogram revealed EF 5560 percent, rightVentricular Systolic Press 60.6 mmHg, rightVentricle Severe rightventricular dilatation, RightAtrium Normalrightatrial size, and dilatedrightventricle with severe pulmonary hypertension LV systolic function is normal. Treatment: #1 Percutaneous ultrasonic fragmentation of bilateral pulmonary embolism #2 Transcatheter therapy of bilateral pulmonary embolism using infusion of TPA Is there an additional diagnosis that is clinically appropriate for this patient? [ + ] Pulmonary embolism with acute cor pulmonale [ ] Pulmonary embolism without acute cor pulmonale [ ] Other, please specify [ ] Unable to determine MTDD
== END 2023-02-19 12:35 | disposition home or self-care (01) | DRG 173 ==
LOC: EC 11:43 → 2SICU 14:33
PROVIDERS: ADMIT Hospitalist; ATTEND Hospitalist
DX: I26.09 Other pulmonary embolism with acute cor pulmonale (principal); I21.A1 Myocardial infarction type 2; I27.20 Pulmonary hypertension, unspecified; I37.1 Nonrheumatic pulmonary valve insufficiency; I07.1 Rheumatic tricuspid insufficiency; S83.105D Unspecified dislocation of left knee, subsequent encounter; F12.90 Cannabis use, unspecified, uncomplicated; Z79.899 Other long term (current) drug therapy; Z86.718 Personal history of other venous thrombosis and embolism; Z86.711 Personal history of pulmonary embolism; Z88.1 Allergy status to other antibiotic agents
CPT/HCPCS: 36415; 37211; 71046; 71275; 80048; 80053; 83880; 84484; 85025; 85379; 85384; 85610; 85730; 93005; 93306; 93970; 96361; 96365; 99291

== ENCOUNTER → 2023-04-16 | Outpatient (CLI) | payer BC ==
--- NOTE | 2023-04-17 11:01 | CT ---
EXAMINATION TYPE: CT angio chest CT DLP: 218.0 mGycm, Automated exposure control for dose reduction was used. DATE OF EXAM: 04/16/2023 4:21 PM COMPARISON: 02/17/2023. CLINICAL INDICATION:Female, 42 years old with history of I26.99 OTHER PULMONARY EMBOLISM; Follow up o n PE from 02/17/2023 TECHNIQUE/CONTRAST: CTA scan of the thorax is performed with IV Contrast, patient injected with 64 cc mL of Isovue 370, M IP images are created and reviewed these are created on a separate workstation.. FINDINGS: Pulmonary Artery: There is no evidence for a filling defect within the pulmonary vasculature to sugge st acute pulmonary embolism. The pulmonary artery is of normal size. Lungs/Pleura: No evidence of focal consolidation, pleural effusion or pneumothorax. Airway: Large airways are patent. Heart: Heart is within normal limits for size. Vasculature: No evidence of aortic aneurysm. Mediastinum: No gross evidence of adenopathy. Musculoskeletal: No acute osseous abnormalities Soft Tissues: Unremarkable. Lower neck: No significant findings. Upper Abdomen: Hepatic lesion with peripheral enhancement.. IMPRESSION: 1. Resolution of prior pulmonary emboli, no pulmonary emboli visualized. 2. Right hepatic lobe probable hemangioma. Follow up recommendations for incidental pulmonary nodules, if there are any, are per [employer] or [employer].
== END | disposition home or self-care (01) ==
LOC: RADCTMAIN 15:52
PROVIDERS: ATTEND Internal Medicine Critical Care Medicine
DX: I26.99 Other pulmonary embolism without acute cor pulmonale (principal)
CPT/HCPCS: 71275; Q9967

== ENCOUNTER 2023-05-19 21:44 | Emergency (ER) | payer BC, OTHER ==
--- NOTE | 2023-05-19 22:04 | ED ---
General Adult HPI - General Source: patient, family, RN notes reviewed Mode of arrival: ambulatory Limitations: no limitations <Estela Keller - Last Filed: 05/19/23 22:02> <Belinda Burk - Last Filed: 06/02/23 01:36> - General Chief complaint: Fall Stated complaint: Fall- blood thinners, head and shoulder injury Time Seen by Provider: 05/19/23 22:02 - History of Present Illness Initial comments: 42-year-old female presents to the emergency department for evaluation of right shoulder pain and head injury following a fall. Patient states that she was in her kitchen when she slipped on some water on the her to fall. She reports pain in the right shoulder difficulty with lifting the arm. She also admits to hitting her head on either the counter of the fridge. She denies loss of consciousness. Patient is on Eliquis. (Estela Keller) 42-year-old female presents emergency department for evaluation of right shoulder pain. Patient states that she was in her kitchen when she slipped and fell on some water and landed on her right arm. She also hit her head. She denies losing consciousness. She does take blood thinners for history of DVT. She denies any headaches or visual changes. No nausea or vomiting. Did not take anything for pain before coming in. Does have significant pain in the right shoulder. No numbness, tingling or weakness in the hand. No elbow pain. No concern for . No other alleviating, precipitating or modifying factors (Belinda Burk) - Related Data Home Medications Medication Instructions Recorded Confirmed Multivitamins, Thera [Multivitamin 1 tab PO DAILY 02/17/23 02/17/23 (formulary)] Previous Rx's Medication Instructions Recorded Acetaminophen Tab [Tylenol] 650 mg PO Q6HR PRN tab 02/19/23 Apixaban [Eliquis] 10 mg PO BID #60 tab 02/19/23 HYDROcodone/APAP 5-325MG [Julian 1 tab PO Q4HR PRN 3 Days #18 tab 05/20/23 5-325] Ondansetron Odt [Zofran Odt] 4 mg PO Q8HR PRN #30 tab 05/20/23 Allergies Allergy/AdvReac Type Severity Reaction Status Date / Time cefuroxime [From Ceftin] Allergy Rash/Hives Verified 05/19/23 21:56 Review of Systems ROS Other: All systems not noted in ROS Statement are negative. <Estela Keller - Last Filed: 05/19/23 22:02> ROS Other: All systems not noted in ROS Statement are negative. <Belinda Burk - Last Filed: 06/02/23 01:36> ROS Statement: Those systems with pertinent positive or pertinent negative responses have been documented in the HPI. Past Medical History Past Medical History: Deep Vein Thrombosis (DVT), Pulmonary Embolus (PE) History of Any Multi-Drug Resistant Organisms: None Reported Past Surgical History: No Surgical Hx Reported Past Psychological History: No Psychological Hx Reported Smoking Status: Former smoker Past Alcohol Use History: Occasional Past Drug Use History: Marijuana <Estela Keller - Last Filed: 05/19/23 22:02> General Exam Limitations: no limitations <Estela Keller - Last Filed: 05/19/23 22:02> General appearance: alert, anxious Head exam: Present: atraumatic, normocephalic, normal inspection Eye exam: Present: normal appearance, PERRL, EOMI. Absent: scleral icterus, conjunctival injection, periorbital swelling ENT exam: Present: normal exam, mucous membranes moist Neck exam: Present: normal inspection. Absent: tenderness, meningismus, lymphadenopathy Respiratory exam: Present: normal lung sounds bilaterally. Absent: respiratory distress, wheezes, rales, rhonchi, stridor Cardiovascular Exam: Present: regular rate, normal rhythm, normal heart sounds. Absent: systolic murmur, diastolic murmur, rubs, gallop, clicks GI/Abdominal exam: Present: soft, normal bowel sounds. Absent: distended, tenderness, guarding, rebound, rigid Extremities exam: Present: tenderness (To palpation of the right proximal arm. Patient has intact sensation in the median, ulnar and radial nerve distributions. 2+ radial and ulnar pulses), normal capillary refill. Absent: pedal edema, joint swelling, calf tenderness Back exam: Present: normal inspection Neurological exam: Present: alert, oriented X3, CN II-XII intact Psychiatric exam: Present: normal affect, normal mood Skin exam: Present: warm, dry, intact, normal color. Absent: rash <Damer,Belinda A - Last Filed: 06/02/23 01:36> - General Exam Comments Initial Comments: Visual Physical Exam Vital signs reviewed General: Well-appearing, nontoxic, no acute distress. Head: Normocephalic, atraumatic Eyes: PERRLA, EOMI ENT: Airway patent Chest: Nonlabored breathing Skin: No visual rash, normal skin tone Neuro: Alert and oriented 3 Musculoskeletal: No gross abnormalities (Estela Keller) Course Vital Signs 05/19/23 05/20/23 21:54 00:30 Temperature 98 F 98.0 F Pulse Rate 105 H 98 Respiratory 20 18 Rate Blood Pressure 122/82 O2 Sat by Pulse 98 97 Oximetry Medical Decision Making <Estela Keller - Last Filed: 05/19/23 22:02> <Belinda Burk - Last Filed: 06/02/23 01:36> - Medical Decision Making Quick note preformed by Estela Keller PA-C (Estela Keller) Was pt. sent in by a medical professional or institution (LUCERO Carver, CELLULAR PHONE REPAIRER, urgent care, hospital, or fci...) When possible be specific @ -No Did you speak to anyone other than the patient for history (EMS, parent, family, police, friend...)? What history was obtained from this source @ - Did you review nursing and triage notes (agree or disagree)? Why? @ -I reviewed and agree with nursing and triage notes Were old charts reviewed (outside hosp., previous admission, EMS record, old EKG, old radiological studies, urgent care reports/EKG's, fci records)? Report findings @ -No old charts were reviewed Differential Diagnosis (chest pain, altered mental status, abdominal pain women, abdominal pain men, vaginal bleeding, weakness, fever, dyspnea, syncope, headache, dizziness, GI bleed, back pain, seizure, CVA, palpatations, mental health, musculoskeletal)? @ -Differential Musculoskeletal Muscular strain, contusion, ligament sprain, fracture, arthritis, septic arthritis, bursitis, cellulitis, muscle spasm, nerve compression, DVT, arterial occlusion, herpes zoster, electrolyte abnormality, tumor.... This is not meant to be in all inclusive list EKG interpreted by me (3pts min.). @ -Not done X-rays interpreted by me (1pt min.). @ -Yes and demonstrates proximal humerus fracture CT interpreted by me (1pt min.). @ -Yes and demonstrates no acute intracranial injury U/S interpreted by me (1pt. min.). @ -Not done What testing was considered but not performed or refused? (CT, X-rays, U/S, labs)? Why? @ -None What meds were considered but not given or refused? Why? @ -None Did you discuss the management of the patient with other professionals (professionals i.e. , PA, CELLULAR PHONE REPAIRER, lab, RT, psych nurse, social science professor, tumblers supervisor, teacher, parcel post officer, casework specialist)? Give summary @ -No Was smoking cessation discussed for >3mins.? @ -No Was critical care preformed (if so, how long)? @ -No Were there social determinants of health that impacted care today? How? (Homelessness, low income, unemployed, alcoholism, drug addiction, transportation, low edu. Level, literacy, decrease access to med. care, senior care, rehab)? @ -No Was there de-escalation of care discussed even if they declined (Discuss DNR or withdrawal of care, Hospice)? DNR status @ -No What co-morbidities impacted this encounter? (DM, HTN, Smoking, COPD, CAD, Cancer, CVA, ARF, Chemo, Hep., AIDS, mental health diagnosis, sleep apnea, morbid obesity)? @ -DVT on anticoagulation Was patient admitted / discharged? Hospital course, mention meds given and route, prescriptions, significant lab abnormalities, going to OR and other pertinent info. @ -Discharged. Upon arrival patient was placed into room 4. Patient is administered pain medications. I did discuss results with the patient. She is placed in a sling. Patient be discharged home with pain medications. Instructed to follow-up with the orthopedic surgeon for further management and return for any new or worsening symptoms. Patient was agreeable to plan and she was discharged in stable condition Undiagnosed new problem with uncertain prognosis? @ -Yes Drug Therapy requiring intensive monitoring for toxicity (Heparin, Nitro, Insulin, Cardizem)? @ -No Were any procedures done? @ -No Diagnosis/symptom? @ -Acute fall, acute right humeral fracture, acute blunt head trauma, chronic anticoagulation Acute, or Chronic, or Acute on Chronic? @ -Acute Uncomplicated (without systemic symptoms) or Complicated (systemic symptoms)? @ -Complicated Side effects of treatment? @ -No Exacerbation, Progression, or Severe Exacerbation? @ -No Poses a threat to life or bodily function? How? (Chest pain, [place], [place], pneumonia, PE, COPD, DKA, ARF, appy, cholecystitis, CVA, Diverticulitis, Homicidal, Suicidal, threat to staff... and all critical care pts) @ -No (Belinda Burk) Disposition <Estela Keller - Last Filed: 05/19/23 22:02> Is patient prescribed a controlled substance at d/c from ED?: Yes When asked, does pt state using other controlled substances?: No If prescribed controlled substance>3 days was MAPS reviewed?: Prescribed <3 Days If opioid is for acute pain is fill amount 7 days or less?: Yes Time of Disposition: 00:22 <Belinda Burk - Last Filed: 06/02/23 01:36> Clinical Impression: Fall, Blunt head trauma, Right humeral fracture Disposition: HOME SELF-CARE Condition: Stable Instructions (If sedation given, give patient instructions): Proximal Humerus Fracture (ED) Additional Instructions: Wear the sling. Call in the morning to make an appointment with the orthopedic associate office. You may take the Julian in 4 hours (4 am) if you have more pain. May take a Tylenol 3 at 8 am if you continue to have pain. Take the nausea medications every 8 hours. Eat when you take the pain meds. Return for any new or worsening symptoms Prescriptions: HYDROcodone/APAP 5-325MG [Julian 5-325] 1 tab PO Q4HR PRN 3 Days #18 tab PRN Reason: Severe Breakthrough Pain Ondansetron Odt [Zofran Odt] 4 mg PO Q8HR PRN #30 tab PRN Reason: Nausea Referrals: Marlen Romero DO [Primary Care Provider] - 1-2 days Yovani Gonzalez MD [STAFF PHYSICIAN] - 1-2 days
--- NOTE | 2023-05-19 22:26 | XR ---
EXAM: XR Right Shoulder Complete, 2 or More Views CLINICAL HISTORY: ITS.REASON XR Reason: fall TECHNIQUE: Two or more views of the right shoulder. COMPARISON: No relevant prior studies available. FINDINGS: Bones/joints: Nondisplaced fracture of the RIGHT proximal humerus surgical neck, that extends into the greater tuberosity. No dislocation. Soft tissues: Unremarkable. IMPRESSION: Nondisplaced fracture of the RIGHT proximal humerus surgical neck, that extends into the greater tuberosity. No dislocation.
--- NOTE | 2023-05-19 22:26 | XR ---
EXAM: XR Right Elbow Complete, 3 or More Views CLINICAL HISTORY: ITS.REASON XR Reason: fall TECHNIQUE: Frontal, lateral and oblique views of the right elbow. COMPARISON: No relevant prior studies available. FINDINGS: Bones/joints: Unremarkable. No acute fracture. No dislocation. Soft tissues: Unremarkable. IMPRESSION: Normal right elbow x-rays.
--- NOTE | 2023-05-19 22:26 | CT ---
EXAM: CT Head Without Intravenous Contrast CLINICAL HISTORY: ITS.REASON CT Reason: fall TECHNIQUE: Axial computed tomography images of the head/brain without intravenous contrast. CTDI is 49.1 mGy and DLP is 1106.5 mGy-cm. This CT exam was performed using one or more of the following dose reduction techniques: automated exposure control, adjustment of the mA and/or kV according to patient size, and/or use of iterative reconstruction technique. COMPARISON: No relevant prior studies available. FINDINGS: No acute intracranial hemorrhage. No midline shift or mass effect. The territorial dietz-white matter differentiation is maintained throughout. The ventricles and sulci are commensurate with age. The visualized orbits appear grossly unremarkable. RIGHT periorbital soft tissue swelling. The calvarium is intact. The visualized paranasal sinuses and mastoid air cells are grossly clear. IMPRESSION: No acute intracranial hemorrhage, midline shift, or mass effect. RIGHT periorbital soft tissue swelling.
[2023-05-19] MEDS ORDERED: MORPHINE SULFATE 4 MG/ML SYRINGE IM STA (23:23)
[2023-05-19] MEDS ORDERED: ONDANSETRON ODT 4 MG TAB PO STA (23:23)
[2023-05-20] MEDS ORDERED: ACET/COD 300 MG/30 MG STARTER PACK 6 TAB BTL PO STA (00:12)
[2023-05-20] MEDS ORDERED: HYDROcodone/APAP 5-325MG 1 EACH TAB PO STA (00:12)
[2023-05-20] MEDS ORDERED: ONDANSETRON 4 MG ODT STARTER PACK 2 TAB BTL PO STA (00:13)
[2023-05-20 00:53] VITALS: BP 122/82; PULSE 98; RESP 18; TEMP 98
== END 2023-05-20 00:38 | disposition home or self-care (01) ==
LOC: EC 21:44
DX: S42.214A Unspecified nondisplaced fracture of surgical neck of right humerus, initial encounter for closed fracture (principal); S09.90XA Unspecified injury of head, initial encounter; F12.90 Cannabis use, unspecified, uncomplicated; Z87.891 Personal history of nicotine dependence; Z88.1 Allergy status to other antibiotic agents; W01.198A Fall on same level from slipping, tripping and stumbling with subsequent striking against other object, initial encounter; Y92.000 Kitchen of unspecified non-institutional (private) residence as the place of occurrence of the external cause
CPT/HCPCS: 73030; 73070; 70450; 99284; 96372; J2270; S0119

== ENCOUNTER → 2023-11-02 | Outpatient (CLI) | payer OTHER ==
--- NOTE | 2023-11-02 12:36 | US ---
EXAMINATION TYPE: US venous doppler duplex LE RT DATE OF EXAM: 11/02/2023 12:28 PM COMPARISON: Bilateral lower extremity venous ultrasound 02/18/2023 CLINICAL INDICATION: Female, 43 years old with history of M79.604 PAIN IN RIGHT LEG; Hx of DVT and PE SIDE PERFORMED: Right TECHNIQUE: The lower extremity deep venous system is examined utilizing real time linear array sonog kenneth with graded compression, doppler sonography and color-flow sonography. VESSELS IMAGED: Common Femoral Vein Deep Femoral Vein Greater Saphenous Vein * Femoral Vein Popliteal Vein Small Saphenous Vein * Proximal Calf Veins (* superficial vessels) Grayscale, color doppler, spectral doppler imaging performed of the deep veins of the right lower ext remity. There is normal flow, compressibility, vascular waveforms. Right Leg: Negative for DVT IMPRESSION: No deep venous thrombosis of the right lower extremity.
== END | disposition home or self-care (01) ==
LOC: RADUSWWP 12:13
PROVIDERS: ATTEND Family Medicine
DX: I82.401 Acute embolism and thrombosis of unspecified deep veins of right lower extremity (principal)